=== PATIENT | male | born 1960 | race Hispanic/Latino ===

== ENCOUNTER 2020-10-15 04:11 | Inpatient (IN) | payer SELFPAY ==
[2020-10-15] MEDS ORDERED: dilTIAZem 25 MG/5 ML INJ ONE (04:16)
[2020-10-15] MEDS ORDERED: SODIUM CHLORIDE 0.9% 1000 ML 1,000 ML IV ONE (04:26)
--- NOTE | 2020-10-15 04:31 | Emergency Department Report ---
HPI - General Time Seen by Provider: 10/15/20 04:24 - HPI HPI: Room 22 The patient is a 60-year-old male present with a chief complaint of shortness of breath. The patient states for the past 2 days he has had a productive cough chest heaviness and shortness of breath. Patient states his chest heaviness was intermittent in nature. The patient states this evening he developed palpitations and shortness of breath prompting him to call 911. Patient states he has not been vaccinated against COVID-19. Patient denies history of fever ED Past Medical Hx - Past Medical History Previous Medical History?: No - Surgical History Past Surgical History?: No - Family History Family history: no significant - Social History Smoking Status: Current Every Day Smoker (1 pack/day) Substance Use Type: None (Denies illicit drug use) ED Review of Systems ROS: Stated complaint: AFIB RVR Other details as noted in HPI Constitutional: denies: fever Eyes: denies: eye pain Respiratory: cough, shortness of breath Cardiovascular: chest pain, palpitations Endocrine: no symptoms reported Gastrointestinal: denies: abdominal pain Genitourinary: denies: dysuria Skin: denies: lesions Neurological: denies: headache Physical Exam - Physical Exam Vital Signs: Vital Signs 10/15/20 10/15/20 10/15/20 04:18 04:20 04:24 Temperature 98.7 F Pulse Rate 181 H 181 H 121 H Respiratory 26 H Rate Blood Pressure 202/166 Blood Pressure 202/166 150/91 [Right] O2 Sat by Pulse 93 Oximetry 10/15/20 10/15/20 10/15/20 04:30 04:41 04:42 Temperature Pulse Rate 133 H 130 H Respiratory 42 H Rate Blood Pressure 202/166 156/98 Blood Pressure 156/98 [Right] O2 Sat by Pulse 92 Oximetry 10/15/20 10/15/20 10/15/20 04:46 05:00 05:04 Temperature Pulse Rate 107 H 100 H Respiratory 19 25 H Rate Blood Pressure 156/98 142/73 Blood Pressure [Right] O2 Sat by Pulse 96 95 94 Oximetry Physical Exam: GENERAL: The patient is well-developed well-nourished male lying on stretcher not appearing to be in acute distress. [] HEENT: Normocephalic. Atraumatic. Extraocular motions are intact. Patient has moist mucous membranes. NECK: Supple. Trachea midline CHEST/LUNGS: Rhonchi auscultated left lower lobe left upper lobe. HEART/CARDIOVASCULAR: Irregularly irregular. There is tachycardia. There is no gallop rub or murmur. ABDOMEN: Abdomen is soft, nontender. Patient has normal bowel sounds. There is no abdominal distention. SKIN: There is no rash. There is no edema. There is no diaphoresis. NEURO: The patient is awake, alert, and oriented. The patient is cooperative. The patient has no focal neurologic deficits. The patient has normal speech. GCS 15 MUSCULOSKELETAL: There is no evidence of acute injury. ED Medical Decision Making - Lab Data Result diagrams: 10/15/20 04:40 10/15/20 04:40 Laboratory Tests 10/15/20 10/15/20 10/15/20 04:40 04:40 04:40 WBC 11.1 H RBC 5.14 H Hgb 16.6 H Hct 48.9 H MCV 95 H MCH 32 MCHC 34 RDW 13.6 Plt Count 82 L Lymph % (Auto) 13.5 [place] % (Auto) 5.6 Eos % (Auto) 0.9 Baso % (Auto) 0.3 Lymph # (Auto) 1.5 [place] # (Auto) 0.6 Eos # (Auto) 0.1 Baso # (Auto) 0.0 Seg Neutrophils % 79.7 H Seg Neutrophils # 8.9 H PT 14.3 INR 1.06 APTT 30.2 Sodium 140 Potassium 3.6 Chloride 104.8 Carbon Dioxide 23 Anion Gap 16 BUN 21 H Creatinine 1.0 Estimated GFR > 60 BUN/Creatinine Ratio 21 Glucose 209 H Lactic Acid Calcium 9.4 Magnesium 1.80 Total Bilirubin 1.70 H AST 44 H ALT 31 Alkaline Phosphatase 117 Total Creatine Kinase 86 CK-MB (CK-2) 3.9 CK-MB (CK-2) Rel Index 4.5 H Troponin T < 0.010 NT-Pro-B Natriuret Pep 2259 H Total Protein 6.7 Albumin 4.4 Albumin/Globulin Ratio 1.9 TSH Free T4 10/15/20 10/15/20 04:40 04:40 WBC RBC Hgb Hct MCV MCH MCHC RDW Plt Count Lymph % (Auto) [place] % (Auto) Eos % (Auto) Baso % (Auto) Lymph # (Auto) [place] # (Auto) Eos # (Auto) Baso # (Auto) Seg Neutrophils % Seg Neutrophils # PT INR APTT Sodium Potassium Chloride Carbon Dioxide Anion Gap BUN Creatinine Estimated GFR BUN/Creatinine Ratio Glucose Lactic Acid 1.90 Calcium Magnesium Total Bilirubin AST ALT Alkaline Phosphatase Total Creatine Kinase CK-MB (CK-2) CK-MB (CK-2) Rel Index Troponin T NT-Pro-B Natriuret Pep Total Protein Albumin Albumin/Globulin Ratio TSH 3.200 Free T4 1.22 - EKG Data -: EKG Interpreted by Me Rate: tachycardia - EKG Data When compared to previous EKG there are: previous EKG unavailable Interpretation: other (A. fib with RVR 176 bpm.) 10/15/20 04:31 EMS EKG shows A. fib with RVR 10/15/20 05:03 ED EKG (status post Cardizem second dose) A. fib at 96 bpm. Biphasic T waves in leads V3, V4, V5, V6 - Radiology Data Radiology results: report reviewed (Chest x-ray), image reviewed (Chest x-ray) interpreted by me: Chest x-ray-right lower lobe airspace disease. No pneumothorax [facility] [address] [place] [address] XRay Report Signed Patient: SHERRI PRADO MR#: [id number] : 1960 Acct:[id number] Age/Sex: 60 / M ADM Date: 10/15/20 Loc: ED Attending Dr: Ordering Physician: MEME DAMON MD Date of Service: 10/15/20 Procedure(s): XR chest 1V ap Accession Number(s): [id number] cc: MEME DAMON MD Fluoro Time In Minutes: Chest single view INDICATION: Dyspnea IMPRESSION: Cardiomegaly. Ill- defined airspace disease within both lower lungs, right worse than left. No significant pleural effusion. Signer Name: Toi Paniagua MD Signed: 10/15/2020 5:0 5 AM Workstation Name: [id number] Transcribed By: RASHID Dictated By: Toi Paniagua MD Electronically Authenticated By: Toi Paniagua MD Signed Date/Time: 10/15/20 050 DD/ 0505 TD/TT: Print Cancel - Differential Diagnosis A. fib with RVR, COVID-19, pneumonia, ACS, pericarditis, GERD Critical care attestation.: If time is entered above; I have spent that time in minutes in the direct care of this critically ill patient, excluding procedure time. ED Disposition Clinical Impression: Atrial fibrillation with rapid ventricular response, Suspected COVID-19 virus infection, Pneumonia, Chest pain Disposition: ADMITTED INPATIENT Is pt being admited?: Yes Does the pt Need Aspirin: Yes Condition: Fair Instructions: Bacterial Pneumonia (ED), Nonspecific Chest Pain, Adult Time of Disposition: 05:35 (Hospitalist paged (Dr Pena)) Heart Score - HEART Score History: Moderately suspicious EKG: Non-specific Age: 45-65 Risk factors: 1-2 risk factors Troponin: < normal limit HEART Score: 4 - EKG Read Time Time EKG Completed: 04:16 EKG Read Time: 04:30
[2020-10-15] MEDS ORDERED: ASPIRIN 325 MG TAB PO ONE (04:32)
[2020-10-15] MEDS ORDERED: dilTIAZem 25 MG/5 ML INJ IV ONE ×2 (04:37)
--- NOTE | 2020-10-15 05:09 | XRay Report ---
Chest single view INDICATION: Dyspnea IMPRESSION: Cardiomegaly. Ill-defined airspace disease within both lower lungs, right worse than left . No significant pleural effusion. Signer Name: Toi Paniagua MD Signed: 10/15/2020 5:05 AM Workstation Name: [id number]
[2020-10-15] MEDS ORDERED: cefTRIAXone/NS 1 GM/50 ML 1 GM/50 ML BAG IV ONE (05:12)
[2020-10-15] MEDS ORDERED: AZITHROMYCIN/NS 500 MG/250 ML 500 MG/250 ML BAG IV ONE (05:12)
[2020-10-15 05:13] LABS: Basophils % (Auto) 0.3 % (0.0-1.8); Eosinophils # (Auto) 0.1 K/mm3 (0.0-0.4); Eosinophils % (Auto) 0.9 % (0.0-4.3); Hematocrit 48.9 % (35.5-45.6); Hemoglobin 16.6 gm/dl (11.8-15.2); Lymphocytes # (Auto) 1.5 K/mm3 (1.2-5.4); Lymphocytes % (Auto) 13.5 % (13.4-35.0); Mean Corpuscular HGB Conc 34 % (32-34); Mean Corpuscular Volume 95 fl (84-94); Monocytes # (Auto) 0.6 K/mm3 (0.0-0.8); Monocytes % (Auto) 5.6 % (0.0-7.3); Red Blood Count 5.14 M/mm3 (3.65-5.03); Red Cell Distribution Width 13.6 % (13.2-15.2)
[2020-10-15 05:22] LABS: Platelet Count 82 K/mm3 (140-440)
[2020-10-15 05:23] LABS: INR 1.06 (0.87-1.13)
[2020-10-15 05:24] LABS: Partial Thromboplastin Time 30.2 Sec. (24.2-36.6)
[2020-10-15 05:27] LABS: Alanine Aminotransferase 31 units/L (7-56); Albumin 4.4 g/dL (3.9-5); BUN/Creatinine Ratio 21; Blood Urea Nitrogen 21 mg/dL (9-20); Calcium 9.4 mg/dL (8.4-10.2); Creatine Kinase MB 3.9 ng/mL (0.0-4.0); Hemolysis Index 5
[2020-10-15 05:33] LABS: Free T4 (Free Thyroxine) 1.22 ng/dL (0.76-1.46)
[2020-10-15] MEDS ORDERED: dexAMETHasone 20 MG/5 ML VIAL IV ONE (05:42)
[2020-10-15 08:56] LABS: Amphetamine Screen,Urine Negative; Benzodiazepines Screen,Urine Negative; Cannabinoid Screen,Urine Negative; Cocaine Screen,Urine Negative; Methadone Screen,Urine Negative; Opiate Screen,Urine Negative
--- NOTE | 2020-10-15 11:51 | History and Physical Report ---
History of Present Illness Chief complaint: Im short of breath History of present illness: 60 YO Male with Obesity Hypoventilation Syndrome, Nicotine Dependence, HTN, Medication Noncompliance presents to ED for evaluation. Patient reported "I feel short of breath". Patient states he has experienced shortness of breath over the past 2 days with persistent and worsening symptoms over the same timeframe. Patient acknowledges productive cough, fatigue, malaise, body aches, decreased sense of smell, decrease in sense of taste, as well as chest palpitations. Patient also acknowledges orthopnea, paroxysmal nocturnal dyspnea, decreased exercise tolerance. EMS was notified and upon arrival the patient was found to be in distress and subsequently transported to [facility] for further care and evaluation of the aforementioned symptoms. Patient was seen and evaluated in the emergency department. All lab and imaging studies reviewed. Patient found to have a pulse oximetry of 89% with exertion which is consistent with acute hypoxemic respiratory failure. Chest x-ray revealed bilateral pneumonia. production repairer monitor as well as subsequent EKG revealed atrial fibrillation complicated by rapid ventricular response. Patient also found to have clinical symptoms consistent with diastolic CHF decompensation. Patient mated to medical floor and initiated on pneumonia protocol as well as coronavirus protocol. Patient treated with medical cardioversion with normalization of heart rate and improvement in blood pressure. Patient knowledges subjective fever but denies chills, chest pain, skin rash, recent ill contact, or known exposure to COVID-19. Patient states he has not been vaccinated against COVID-19. No prior admission for review. No medication listed at time of admission for reconciliation. Advanced care planning conducted in ED. Past History Past Medical History: hypertension, other (See HPI) Past Surgical History: No surgical history, Other (Reviewed) Social history: smoking Family history: hypertension Medications and Allergies Allergies Allergy/AdvReac Type Severity Reaction Status Date / Time No Known Allergies Allergy Verified 10/15/20 04:30 Review of Systems Constitutional: fever, weakness, malaise, lethargy, no weight loss, no weight gain Ears, nose, mouth and throat: no ear pain, no ear discharge, no tinnitis, no decreased hearing, no nose pain Cardiovascular: orthopnea, palpitations, shortness of breath, dyspnea on exertion, paroxysmal nocturnal dyspnea, high blood pressure, decreased exercise tolerance Exam - Constitutional Vitals: Temp Pulse Resp BP Pulse Ox 98.7 F 114 H 23 131/83 94 10/15/20 04:20 10/15/20 07:30 10/15/20 07:30 10/15/20 07:30 10/15/20 07:30 General appearance: Present: mild distress, obese - EENT Eyes: Present: PERRL ENT: hearing intact, clear oral mucosa - Neck Neck: Present: supple, normal ROM - Respiratory Respiratory effort: labored, accessory muscle use, stridor Respiratory: bilateral: diminished, rhonchi - Cardiovascular Rhythm: irregularly irregular Heart Sounds: Present: S1 & S2. Absent: rub, click - Extremities Extremities: pulses symmetrical Extremity abnormal: edema Peripheral Pulses: within normal limits - Abdominal General gastrointestinal: Present: soft, non-tender, non-distended, normal bowel sounds Male genitourinary: Present: normal - Integumentary Integumentary: Present: clear, warm, dry - Musculoskeletal Musculoskeletal: gait normal, strength equal bilaterally - Psychiatric Psychiatric: appropriate mood/affect, intact judgment & insight - Neurologic Neurologic: CNII-XII intact, moves all extremities HEART Score - HEART Score EKG: Non-specific Age: 45-65 Risk factors: 1-2 risk factors Troponin: Troponin T < 0.010 ng/mL (0.00-0.029) 10/15/20 04:40 Troponin: < normal limit Results - Labs CBC & Chem 7: 10/15/20 12:23 10/15/20 12:23 Labs: Abnormal lab results 10/15/20 10/15/20 Range/Units 04:40 04:40 WBC 11.1 H (4.5-11.0) K/mm3 RBC 5.14 H (3.65-5.03) M/mm3 Hgb 16.6 H (11.8-15.2) gm/dl Hct 48.9 H (35.5-45.6) % MCV 95 H (84-94) fl Plt Count 82 L (140-440) K/mm3 Seg Neutrophils % 79.7 H (40.0-70.0) % Seg Neutrophils # 8.9 H (1.8-7.7) K/mm3 BUN 21 H (9-20) mg/dL Glucose 209 H (75-100) mg/dL Total Bilirubin 1.70 H (0.1-1.2) mg/dL AST 44 H (5-40) units/L CK-MB (CK-2) Rel Index 4.5 H (0-4) NT-Pro-B Natriuret Pep 2259 H (0-900) pg/mL Assessment and Plan - Patient Problems (1) Acute hypoxemic respiratory failure Current Visit: Yes Status: Acute Plan to address problem: Supplemental oxygen, pulse oximetry, chest x-ray, nebulizer therapy, noninvasive positive pressure ventilation as clinically indicated. (2) Obesity hypoventilation syndrome Current Visit: Yes Status: Acute Plan to address problem: Balanced diet, increase physical activity discharge, outpatient pulmonary follow-up for sleep study. (3) Diastolic CHF Current Visit: Yes Status: Acute Qualifiers: Heart failure chronicity: acute Qualified Code(s): I50.31 - Acute diastolic (congestive) heart failure Plan to address problem: CHF protocol: Strict I's/O, afterload reduction, echocardiogram ordered and is pending at time of admission, thyroid panel, magnesium level, blood pressure control, BNP, (4) Atrial fibrillation with rapid ventricular response Current Visit: Yes Status: Acute Plan to address problem: Medical cardioversion with Cardizem with rate responding and below 100 bpm. Therapeutic anticoagulation, continue medical management. (5) Pneumonia Current Visit: Yes Status: Acute Plan to address problem: Pneumonia protocol: Chest x-ray, CBC, CMP, IV antibiotic therapy, supplemental oxygen, pulse oximetry, blood culture. (6) Suspected COVID-19 virus infection Current Visit: Yes Status: Acute Plan to address problem: Coronavirus protocol: IV antibiotic therapy, IV steroid therapy, vitamin C therapy, vitamin D therapy, zinc therapy, therapeutic anticoagulation. (7) DVT prophylaxis Current Visit: Yes Status: Acute Plan to address problem: SCD to bilateral lower extremities while in bed, therapeutic anticoagulation. (8) Advance care planning Current Visit: Yes Status: Acute Plan to address problem: Disease education conducted, care plan discussed, diagnosis discussed, prognosis discussed, patient is full code, patient knowledges understanding agreement with care plan, +30 minutes.
[2020-10-15] MEDS ORDERED: HYDROmorphone 1 MG/1 ML INJ IV PRN (11:53)
[2020-10-15] MEDS ORDERED: ONDANSETRON 4 MG/2 ML INJ IV PRN (11:53)
[2020-10-15] MEDS ORDERED: ACETAMINOPHEN 325 MG TAB PO PRN (11:53)
[2020-10-15] MEDS ORDERED: oxyCODONE /ACETAMINOPHEN 5-325MG TAB PO PRN (11:53)
[2020-10-15] MEDS ORDERED: ALBUTEROL 2.5 MG/3 ML NEBU IH PRN (11:53)
[2020-10-15 12:48] LABS: Hematocrit 48.7 % (35.5-45.6); Hemoglobin 16.7 gm/dl (11.8-15.2); Mean Corpuscular HGB Conc 34 % (32-34); Mean Corpuscular Volume 95 fl (84-94); Red Blood Count 5.13 M/mm3 (3.65-5.03); Red Cell Distribution Width 13.5 % (13.2-15.2)
[2020-10-15 12:50] LABS: INR 1.05 (0.87-1.13); Partial Thromboplastin Time 29.4 Sec. (24.2-36.6)
[2020-10-15 12:56] LABS: Platelet Count 77 K/mm3 (140-440)
[2020-10-15] MEDS: dilTIAZem 30 MG TAB PO SCH ×3 (13:00→23:44)
[2020-10-15 13:12] LABS: Free T4 (Free Thyroxine) 1.18 ng/dL (0.76-1.46)
[2020-10-15] MEDS: methylPREDNISolone Sod Succinate 40 MG/1 ML INJ IV SCH ×2 (13:44→23:45)
--- NOTE | 2020-10-15 17:23 | Electrocardiograph Report ---
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
--- NOTE | 2020-10-15 17:24 | Electrocardiograph Report ---
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
[2020-10-15] MEDS: cefTRIAXone/NS 2 GM/100 ML 2 GM/100 ML BAG IV SCH (17:52)
[2020-10-15] MEDS: ZINC SULFATE 220 MG CAP PO SCH (23:44)
[2020-10-15] MEDS: ASCORBIC ACID 500 MG TAB PO SCH (23:45)
[2020-10-15] MEDS: APIXABAN 5 MG TAB PO SCH (23:46)
[2020-10-16 06:48] LABS: Basophils % (Auto) 0.2 % (0.0-1.8); Hematocrit 45.5 % (35.5-45.6); Hemoglobin 15.6 gm/dl (11.8-15.2); Lymphocytes # (Auto) 1.3 K/mm3 (1.2-5.4); Lymphocytes % (Auto) 11.2 % (13.4-35.0); Mean Corpuscular HGB Conc 34 % (32-34); Mean Corpuscular Volume 95 fl (84-94); Monocytes # (Auto) 0.4 K/mm3 (0.0-0.8); Monocytes % (Auto) 3.4 % (0.0-7.3); Red Blood Count 4.79 M/mm3 (3.65-5.03); Red Cell Distribution Width 13.5 % (13.2-15.2)
[2020-10-16 06:54] LABS: Platelet Count 76 K/mm3 (140-440)
[2020-10-16 06:59] LABS: BUN/Creatinine Ratio 26; Blood Urea Nitrogen 21 mg/dL (9-20); Calcium 8.7 mg/dL (8.4-10.2); Hemolysis Index 4
[2020-10-16] MEDS: AZITHROMYCIN/NS 500 MG/250 ML 500 MG/250 ML BAG IV SCH (08:24)
[2020-10-16] MEDS: methylPREDNISolone Sod Succinate 40 MG/1 ML INJ IV SCH ×3 (08:24→22:11)
[2020-10-16] MEDS: dilTIAZem 30 MG TAB PO SCH (08:24)
--- NOTE | 2020-10-16 09:02 | Consultation ---
History of Present Illness Consult date: 10/16/20 Consult reason: atrial fibrillation History of present illness: 60-year-old man with no prior cardiac history, presents to the emergency room with several days of cough and low-grade fever, followed by acute palpitations. On presentation to the emergency room, he was found with rapid atrial fibrillation, with a right bundle branch block morphology with heart rate initially in the 200s. He is admitted for further management and cardiac consultation was requested. As reported, EKG was rapid atrial fibrillation, right bundle branch block, no acute ischemic changes. Cardiac troponin measurement was negative. Chest x-ray shows moderate to severe cardiomegaly with minimal interstitial lung changes. Most significant finding on his laboratory values is marked thrombocytopenia, with a platelet count of 77-82,000. His only medical history is chronic tobacco abuse. He has no primary doctor has not had a medical evaluation in many years. He currently is in the emergency room, feels somewhat better following emergency room treatment. He currently remains in atrial fibrillation with heart rates in the 120s. Past History Past Medical History: hypertension, other (Tobacco abuse) Past Surgical History: No surgical history, Other (Reviewed) Social history: smoking Family history: hypertension Medications and Allergies Allergies Allergy/AdvReac Type Severity Reaction Status Date / Time No Known Allergies Allergy Verified 10/15/20 04:30 Active Meds: Active Medications Acetaminophen (Acetaminophen 325 Mg Tab) 650 mg PO Q4H PRN PRN Reason: Pain MILD(1-3)/Fever >100.5/MAY Albuterol (Albuterol 2.5 Mg/3 Ml Nebu) 2.5 mg IH Q4HRT PRN PRN Reason: Shortness Of Breath Apixaban (Apixaban 5 Mg Tab) 10 mg PO Q12HR ANGEL; Protocol Stop: 10/22/20 10:01 Last Admin: 10/15/20 23:46 Dose: 10 mg Documented by: Apixaban (Apixaban 5 Mg Tab) 5 mg PO Q12HR ANGEL; Protocol Ascorbic Acid (Ascorbic Acid 500 Mg Tab) 500 mg PO BID ANGEL Last Admin: 10/15/20 23:45 Dose: 500 mg Documented by: Cholecalciferol (Cholecalciferol (Vit D3) 1000 Unit (25 Mcg) Tab) 1,000 unit PO QDAY ANGEL Diltiazem HCl (Diltiazem 30 Mg Tab) 30 mg PO Q6HR ANGEL Last Admin: 10/16/20 08:24 Dose: 30 mg Documented by: Hydromorphone HCl (Hydromorphone 1 Mg/1 Ml Inj) 0.5 mg IV Q12H PRN PRN Reason: Pain , Severe (7-10) Ceftriaxone Sodium (Rocephin/Ns 2 Gm/100 Ml) 2 gm in 100 mls @ 200 mls/hr IV Q24H [facility]; Protocol Stop: 10/19/20 18:29 Last Admin: 10/15/20 17:52 Dose: 200 mls/hr Documented by: Azithromycin (Zithromax/Ns) 500 mg in 250 mls @ 250 mls/hr IV Q24H [facility]; Protocol Stop: 10/19/20 06:59 Last Admin: 10/16/20 08:24 Dose: 250 mls/hr Documented by: Methylprednisolone Sodium Succinate (Methylprednisolone Sod Succinate 40 Mg/1 Ml Inj) 40 mg IV Q8H [facility] Last Admin: 10/16/20 08:24 Dose: 40 mg Documented by: Ondansetron HCl (Ondansetron 4 Mg/2 Ml Inj) 4 mg IV Q8H PRN PRN Reason: Nausea And Vomiting Oxycodone/Acetaminophen (Oxycodone /Acetaminophen 5-325mg Tab) 1 tab PO Q12H PRN PRN Reason: Pain, Moderate (4-6) Sodium Chloride (Sodium Chloride 0.9% 10 Ml Flush Syringe) 10 ml IV BID [facility] Last Admin: 10/15/20 23:45 Dose: 10 ml Documented by: Sodium Chloride (Sodium Chloride 0.9% 10 Ml Flush Syringe) 10 ml IV PRN PRN PRN Reason: LINE FLUSH Zinc Sulfate (Zinc Sulfate 220 Mg Cap) 220 mg PO BID [facility] Last Admin: 10/15/20 23:44 Dose: 220 mg Documented by: Review of Systems Cardiovascular: palpitations, rapid/irregular heart beat, shortness of breath, no chest pain, no orthopnea, no edema, no syncope, no lightheadedness Respiratory: cough Physical Examination Vital Signs Pulse BP 181 H 202/166 10/15/20 04:18 10/15/20 04:18 General appearance: no acute distress HEENT: Positive: PERRL Neck: Positive: neck supple Cardiac: Positive: irregularly irregular Lungs: Positive: Decreased Breath Sounds Neuro: Positive: Grossly Intact Abdomen: Positive: Soft Male genitourinary: Positive: deferred Skin: Positive: Clear Extremities: Absent: edema Results 10/16/20 05:44 10/16/20 05:44 Coagulation 10/15/20 Range/Units 12:23 PT 14.2 (12.2-14.9) Sec. INR 1.05 (0.87-1.13) APTT 29.4 (24.2-36.6) Sec. CBC 10/15/20 10/16/20 Range/Units 12:23 05:44 WBC 9.0 12.0 H (4.5-11.0) K/mm3 RBC 5.13 H 4.79 (3.65-5.03) M/mm3 Hgb 16.7 H 15.6 H (11.8-15.2) gm/dl Hct 48.7 H 45.5 (35.5-45.6) % Plt Count 77 L 76 L (140-440) K/mm3 Lymph # (Auto) 1.3 (1.2-5.4) K/mm3 [place] # (Auto) 0.4 (0.0-0.8) K/mm3 Eos # (Auto) 0.0 (0.0-0.4) K/mm3 Baso # (Auto) 0.0 (0.0-0.1) K/mm3 Comprehensive Metabolic Panel 10/15/20 10/16/20 Range/Units 12:23 05:44 Sodium 140 (137-145) mmol/L Potassium 4.8 D (3.6-5.0) mmol/L Chloride 104.9 (98-107) mmol/L Carbon Dioxide 25 (22-30) mmol/L BUN 21 H (9-20) mg/dL Creatinine 0.7 L 0.8 (0.8-1.3) mg/dL Glucose 228 H (75-100) mg/dL Calcium 8.7 (8.4-10.2) mg/dL EKG interpretations - Telemetry EKG Rhythm: Atrial Fibrillation (With right bundle branch block morphology) Assessment and Plan - Patient Problems (1) Atrial fibrillation with rapid ventricular response Current Visit: Yes Status: Acute Plan to address problem: This is apparently new finding of rapid atrial fibrillation, patient has no prior cardiac history. The finding of a severe cardiomegaly on chest x-ray will suggest likely underlying dilated cardiomyopathy. We will await echo cardiogram for left ventricular function assessment. Rate control with beta-blockers or Cardizem, with additional amiodarone as needed. The patient may not be a candidate for anticoagulation at this time, due to severe underlying thrombocytopenia. I will therefore hold the Eliquis that was ordered in the emergency room until his thrombocytopenia is further evaluated by hematology and internal medicine.
[2020-10-16] MEDS ORDERED: AMIODARONE 900 MG in DEXTROSE 5% IN WATER 482 ML IV SCH (11:00)
[2020-10-16] MEDS ORDERED: AMIODARONE 150 MG in DEXTROSE 5% IN WATER 97 ML IV ONE (11:00)
[2020-10-16] MEDS: ASCORBIC ACID 500 MG TAB PO SCH ×2 (11:32→22:12)
[2020-10-16] MEDS: ASPIRIN EC 81 MG TAB PO SCH (11:32)
[2020-10-16] MEDS: CHOLECALCIFEROL (VIT D3) 1000 UNIT (25 mcg) TAB PO SCH (11:32)
[2020-10-16] MEDS: APIXABAN 5 MG TAB PO SCH ×2 (11:32→22:11)
[2020-10-16] MEDS: ZINC SULFATE 220 MG CAP PO SCH ×2 (11:33→22:12)
[2020-10-16] MEDS: FUROSEMIDE 40 MG/4 ML INJ IV SCH (11:33)
[2020-10-16] MEDS: SPIRONOLACTONE 25 MG TAB PO SCH (13:00)
[2020-10-16] MEDS: METOPROLOL TARTRATE 50 MG TAB PO SCH ×2 (13:01→22:11)
--- NOTE | 2020-10-16 14:52 | Progress Note ---
Assessment and Plan -- Acute hypoxemic respiratory failure Supplemental O2, nebulizer therapy as needed Likely due to underlying pneumonia and CHF, Continue antibiotics and diuretics as needed -- Atrial fibrillation with rapid ventricular response s/p Medical cardioversion with Cardizem with rate responding and below 100 bpm. Therapeutic anticoagulation, continue medical management. --Acute systolic CHF, EF 20 to 25% Diuresis as recommended per cardiology, antifailure medications -- Pneumonia, CAP Pneumonia protocol: IV antibiotic therapy, supplemental oxygen, pulse oximetry, blood culture. -- Suspected COVID-19 virus infection, resolved with a negative test --Obesity, diet and exercise recommendation as outpatient when clinically more stable -- DVT prophylaxis SCD to bilateral lower extremities while in bed, therapeutic anticoagulation as recommended by cardiology. --Full CODE STATUS Daily clinical course: 10/16/20: Covid test is negative, continue empiric antibiotic for pneumonia. Initiated on IV amiodarone for atrial fibrillation. Anticoagulation per cardiology recommendation. 2D echo showed EF 20 to 25%, cardiology following Subjective Date of service: 10/16/20 Interval history: Patient seen and examined. Medical records and medication list reviewed. No acute event overnight noted by the RN. Patient complains of chest tightness and difficulty breathing on exertion. Patient is tolerating diet. Discussed plan of care at bedside with patient. Objective - Exam Narrative Exam: GENERAL: well-developed and well-nourished white male lying on bed appeared to be in no discomfort. HEENT: Normocephalic. Atraumatic. No conjunctival congestion or icterus. Patient has moist mucous membranes. NECK: Supple. Trachea midline. CHEST/LUNGS: Few crackles auscultated bilaterally, breathing nonlabored. No wheezes or rhonchi. HEART/CARDIOVASCULAR: Regular in rate and rhythm. S1 and S2 positive. ABDOMEN: Abdomen is soft, nontender. Patient has normal bowel sounds. SKIN: There is no rash. Warm and dry. NEURO: No focal motor deficit. Follows command. MUSCULOSKELETAL: No joint effusion or tenderness. EXTRIMITY: No edema, no cyanosis or clubbing. PSYCH: Cooperative. - Constitutional Vitals: Vital Signs - 12hr 10/16/20 10/16/20 10/16/20 03:00 03:30 04:00 Pulse Rate 85 83 74 Respiratory 15 15 15 Rate Blood Pressure 116/59 98/65 96/59 O2 Sat by Pulse 94 96 94 Oximetry 10/16/20 10/16/20 10/16/20 04:30 05:00 05:30 Pulse Rate 85 76 83 Respiratory 16 15 15 Rate Blood Pressure 112/79 104/77 99/65 O2 Sat by Pulse 94 96 96 Oximetry 10/16/20 10/16/20 10/16/20 06:00 06:30 07:00 Pulse Rate 88 86 74 Respiratory 18 16 16 Rate Blood Pressure 136/84 107/64 122/71 O2 Sat by Pulse 95 96 Oximetry 10/16/20 10/16/20 10/16/20 07:30 08:00 08:30 Pulse Rate 83 87 111 H Respiratory 18 17 14 Rate Blood Pressure 114/75 119/74 117/79 O2 Sat by Pulse 97 95 91 Oximetry 10/16/20 10/16/20 10/16/20 09:00 09:30 10:00 Pulse Rate 101 H 96 H 94 H Respiratory 18 16 24 Rate Blood Pressure 119/74 101/67 106/63 O2 Sat by Pulse 98 96 97 Oximetry 10/16/20 10/16/20 10/16/20 10:30 11:00 12:30 Pulse Rate 99 H 81 97 H Respiratory 22 17 22 Rate Blood Pressure 111/75 117/76 119/74 O2 Sat by Pulse 99 93 90 Oximetry 10/16/20 10/16/20 10/16/20 13:00 13:30 14:00 Pulse Rate 113 H 96 H 89 Respiratory 24 28 H 14 Rate Blood Pressure 107/67 107/67 106/67 O2 Sat by Pulse 94 96 96 Oximetry - Labs CBC & Chem 7: 10/19/20 04:57 10/18/20 10:21 Labs: Abnormal lab results 10/16/20 10/16/20 Range/Units 05:44 05:44 WBC 12.0 H (4.5-11.0) K/mm3 Hgb 15.6 H (11.8-15.2) gm/dl MCV 95 H (84-94) fl MCH 33 H (28-32) pg Plt Count 76 L (140-440) K/mm3 Lymph % (Auto) 11.2 L (13.4-35.0) % Seg Neutrophils % 85.2 H (40.0-70.0) % Seg Neutrophils # 10.3 H (1.8-7.7) K/mm3 BUN 21 H (9-20) mg/dL Glucose 228 H (75-100) mg/dL HEART Score - HEART Score EKG: Non-specific Age: 45-65 Risk factors: 1-2 risk factors Troponin: Troponin T < 0.010 ng/mL (0.00-0.029) 10/15/20 04:40 Troponin: < normal limit
[2020-10-16] MEDS: cefTRIAXone/NS 2 GM/100 ML 2 GM/100 ML BAG IV SCH (18:07)
[2020-10-17 06:23] LABS: Hematocrit 45.2 % (35.5-45.6); Hemoglobin 15.3 gm/dl (11.8-15.2); Mean Corpuscular HGB Conc 34 % (32-34); Mean Corpuscular Volume 95 fl (84-94); Red Blood Count 4.76 M/mm3 (3.65-5.03); Red Cell Distribution Width 13.6 % (13.2-15.2)
[2020-10-17 06:47] LABS: Platelet Count 93 K/mm3 (140-440)
[2020-10-17] MEDS: methylPREDNISolone Sod Succinate 125 MG/2 ML INJ IV SCH ×3 (06:55→21:37)
[2020-10-17] MEDS: AZITHROMYCIN/NS 500 MG/250 ML 500 MG/250 ML BAG IV SCH (06:56)
--- NOTE | 2020-10-17 09:45 | Ultrasound Report ---
ULTRASOUND ABDOMEN, LIMITED (RIGHT UPPER QUADRANT) INDICATION: low plt count; eval for splenomegaly. COMPARISON: None available. FINDINGS: The spleen measures 11.6 x 4 cm. Morphology is normal. No internal lesion. IMPRESSION: Spleen upper limits of normal in size. Signer Name: Eleazar Worthy MD Signed: 10/17/2020 9:41 AM Workstation Name: [id number]
[2020-10-17] MEDS: SPIRONOLACTONE 25 MG TAB PO SCH (10:52)
[2020-10-17] MEDS: APIXABAN 5 MG TAB PO SCH (10:52)
[2020-10-17] MEDS: ASCORBIC ACID 500 MG TAB PO SCH ×2 (10:53→21:36)
[2020-10-17] MEDS: CHOLECALCIFEROL (VIT D3) 1000 UNIT (25 mcg) TAB PO SCH (10:53)
[2020-10-17] MEDS: METOPROLOL TARTRATE 50 MG TAB PO SCH ×2 (10:53→21:36)
[2020-10-17] MEDS: FUROSEMIDE 40 MG/4 ML INJ IV SCH (10:53)
[2020-10-17] MEDS: ASPIRIN EC 81 MG TAB PO SCH (10:53)
[2020-10-17] MEDS: ZINC SULFATE 220 MG CAP PO SCH ×2 (10:54→21:40)
--- NOTE | 2020-10-17 10:57 | Progress Note ---
Assessment and Plan New finding of Atrial fibrillation rate controlled TSH is at 3.2 Dilated cardiomyopathy, uncertain duration LVEF 20-25% Thrombocytopenia Tobacco abuse Recommendations: Anticoagulation with Eliquis has been initiated. Continue rate control with Cardizem and Amiodarone. Will transition amiodarone to oral form. Guideline directed medical therapy for dilated cardiomyopathy. Pre-discharge Lexiscan thallium stress test for dilated cardiomyopathy. Subjective Date of service: 10/17/20 Interval history: Patient is resting in bed comfortably. Atrial fibrillation with a well controlled ventricular rate on telemetry. Objective Vital Signs Pulse Resp BP Pulse Ox 10/17/20 10:00 89 16 112/73 96 10/17/20 09:30 82 21 109/76 95 10/17/20 09:00 89 18 110/78 97 10/17/20 08:30 96 H 16 101/76 94 10/17/20 08:00 87 15 104/75 97 10/17/20 07:30 98 H 22 111/80 99 10/17/20 07:00 92 H 24 112/80 99 10/17/20 06:30 89 15 126/81 97 10/17/20 06:00 90 18 94/61 96 10/17/20 05:30 82 14 125/89 96 10/17/20 05:00 82 13 102/73 96 10/17/20 04:30 70 13 105/80 97 10/17/20 04:00 74 12 106/76 96 10/17/20 03:50 81 22 109/68 98 10/17/20 03:40 71 14 109/68 97 10/17/20 03:30 70 13 103/68 96 10/17/20 03:20 75 19 100/77 96 10/17/20 03:10 80 13 100/77 95 10/17/20 03:00 82 15 103/70 94 10/17/20 02:50 77 20 99/70 93 10/17/20 02:40 82 17 105/70 94 10/17/20 02:30 76 17 112/76 94 10/17/20 02:20 81 18 101/74 95 10/17/20 02:10 70 15 101/74 96 10/17/20 02:00 71 15 99/70 96 10/17/20 01:50 71 13 105/63 97 10/17/20 01:40 73 14 105/63 97 08/24/ 01:30 69 12 95/70 96 24/21 01:20 77 15 101/68 100 10/17/20 01:10 87 23 101/68 92 10/17/20 01:00 74 13 103/76 98 24/21 00:50 73 17 106/68 99 10/17/21 00:40 70 15 101/74 98 24/ 00:30 78 16 103/76 96 10/17/20 00:20 83 17 103/76 96 10/17/20 00:10 84 18 103/76 96 10/17/ 00:00 83 23 106/68 88 10/16/ 23:50 101 H 24 114/78 92 10/16/21 23:40 89 17 114/78 94 10/16/ 23:30 83 18 110/78 95 10/16/20 23:20 96 H 22 114/73 98 10/16/ 23:10 91 H 20 114/73 99 10/16/20 23:00 90 24 112/83 93 10/16/20 22:50 91 H 16 105/70 96 10/16/21 22:40 83 16 105/70 96 10/16/21 22:30 85 17 113/83 97 10/16/ 22:20 86 17 110/68 98 10/16/ 22:11 86 110/68 08/21 22:10 95 H 17 110/68 98 10/16/21 22:00 89 16 120/75 99 10/16/21 21:50 79 18 119/79 99 10/16/21 21:40 78 18 119/77 97 23/21 21:30 82 20 111/76 96 10/16/21 21:20 87 22 109/85 95 0823/21 21:10 75 18 109/85 97 23/21 21:00 92 H 20 119/79 96 23/21 20:50 84 24 109/80 96 0823/21 20:40 78 16 109/80 96 /23/21 20:30 85 20 107/70 97 /23/21 20:20 82 26 H 121/62 99 23/21 20:10 93 H 16 121/62 97 23/21 20:00 91 H 12 126/87 97 10/16/20 19:50 82 12 117/80 98 10/16/20 19:40 108 H 30 H 117/80 92 10/16/20 17:30 76 19 106/74 95 10/16/20 17:00 74 22 109/76 99 10/16/20 16:30 75 20 104/71 95 10/16/20 16:00 73 16 88/57 98 10/16/20 15:30 86 17 101/56 96 10/16/20 15:00 60 17 108/72 96 10/16/20 14:30 77 16 115/73 97 10/16/20 14:00 89 14 106/67 96 10/16/20 13:30 96 H 28 H 107/67 96 10/16/20 13:00 113 H 24 107/67 94 10/16/20 12:30 97 H 22 119/74 90 10/16/20 11:00 81 17 117/76 93 - Physical Examination General: No Apparent Distress HEENT: Positive: PERRL Neck: Positive: neck supple Cardiac: Positive: irregularly irregular Lungs: Positive: Decreased Breath Sounds Neuro: Positive: Grossly Intact Abdomen: Positive: Soft Extremities: Absent: edema - Labs and Meds CBC 10/17/20 Range/Units 05:42 WBC 19.4 H (4.5-11.0) K/mm3 RBC 4.76 (3.65-5.03) M/mm3 Hgb 15.3 H (11.8-15.2) gm/dl Hct 45.2 (35.5-45.6) % Plt Count 93 L (140-440) K/mm3
[2020-10-17] MEDS: AMIODARONE 200 MG TAB PO SCH ×2 (12:58→21:36)
--- NOTE | 2020-10-17 17:11 | Progress Note ---
Assessment and Plan -- Acute hypoxemic respiratory failure Supplemental O2, nebulizer therapy as needed Likely due to underlying pneumonia and CHF, Continue antibiotics and diuretics as needed -- Atrial fibrillation with rapid ventricular response s/p Medical cardioversion with Cardizem with rate responding and below 100 bpm. Started on amiodarone Therapeutic anticoagulation as recommended, continue medical management. Cardiology following --Acute systolic CHF, EF 20 to 25% Diuresis as recommended per cardiology, antifailure medications -- Pneumonia, CAP Pneumonia protocol: IV antibiotic therapy, supplemental oxygen, pulse oximetry, blood culture. -- Suspected COVID-19 virus infection, resolved with a negative test --Obesity, diet and exercise recommendation as outpatient when clinically more stable --Thrombocytopenia: Consulted hematology for anticoagulation recommendation -- DVT prophylaxis SCD to bilateral lower extremities while in bed, therapeutic anticoagulation as recommended by cardiology. --Full CODE STATUS Daily clinical course: 10/16/20: Covid test is negative, continue empiric antibiotic for pneumonia. Initiated on IV amiodarone for atrial fibrillation. Anticoagulation per cardiology recommendation. 2D echo showed EF 20 to 25%, cardiology following 10/17/20: Started on Eliquis for anticoagulation, continue rate control with Cardizem and amiodarone. Transition from IV to p.o. amiodarone today. Plan for stress test tomorrow. Continue to follow clinically Subjective Date of service: 10/17/20 Interval history: Patient seen and examined. Medical records and medication list reviewed. No acute event overnight noted by the RN. Patient complains of chest tightness and difficulty breathing on exertion. Patient is tolerating diet. Discussed plan of care at bedside with patient. Objective - Exam Narrative Exam: GENERAL: well-developed and well-nourished white male lying on bed appeared to be in no discomfort. HEENT: Normocephalic. Atraumatic. No conjunctival congestion or icterus. Patient has moist mucous membranes. NECK: Supple. Trachea midline. CHEST/LUNGS: Few crackles auscultated bilaterally, breathing nonlabored. No wheezes or rhonchi. HEART/CARDIOVASCULAR: Regular in rate and rhythm. S1 and S2 positive. ABDOMEN: Abdomen is soft, nontender. Patient has normal bowel sounds. SKIN: There is no rash. Warm and dry. NEURO: No focal motor deficit. Follows command. MUSCULOSKELETAL: No joint effusion or tenderness. EXTRIMITY: No edema, no cyanosis or clubbing. PSYCH: Cooperative. - Constitutional Vitals: Vital Signs - 12hr 10/17/20 10/17/20 10/17/20 05:30 06:00 06:30 Pulse Rate 82 90 89 Respiratory 14 18 15 Rate Blood Pressure 125/89 94/61 126/81 O2 Sat by Pulse 96 96 97 Oximetry 10/17/20 10/17/20 10/17/20 07:00 07:30 08:00 Pulse Rate 92 H 98 H 87 Respiratory 24 22 15 Rate Blood Pressure 112/80 111/80 104/75 O2 Sat by Pulse 99 99 97 Oximetry 10/17/20 10/17/20 10/17/20 08:30 09:00 09:30 Pulse Rate 96 H 89 82 Respiratory 16 18 21 Rate Blood Pressure 101/76 110/78 109/76 O2 Sat by Pulse 94 97 95 Oximetry 10/17/20 10/17/20 10/17/20 10:00 10:30 11:00 Pulse Rate 89 120 H 95 H Respiratory 16 25 H 25 H Rate Blood Pressure 112/73 130/81 131/83 O2 Sat by Pulse 96 96 96 Oximetry 10/17/20 10/17/20 10/17/20 11:30 12:00 12:30 Pulse Rate 80 86 80 Respiratory 24 25 H 17 Rate Blood Pressure 118/81 99/69 98/64 O2 Sat by Pulse 96 93 95 Oximetry 10/17/20 10/17/20 10/17/20 13:00 13:30 13:53 Pulse Rate 77 72 Respiratory 17 15 Rate Blood Pressure 98/64 117/77 O2 Sat by Pulse 91 96 98 Oximetry 10/17/20 10/17/20 10/17/20 14:00 14:30 15:00 Pulse Rate 88 70 72 Respiratory 18 15 14 Rate Blood Pressure 115/70 109/78 123/68 O2 Sat by Pulse 97 92 94 Oximetry 10/17/20 10/17/20 10/17/20 15:30 16:00 16:30 Pulse Rate 84 91 H 84 Respiratory 18 14 20 Rate Blood Pressure 101/66 104/60 119/87 O2 Sat by Pulse 95 95 95 Oximetry - Labs CBC & Chem 7: 10/19/20 04:57 10/18/20 10:21 Labs: Abnormal lab results 10/17/20 Range/Units 05:42 WBC 19.4 H (4.5-11.0) K/mm3 Hgb 15.3 H (11.8-15.2) gm/dl MCV 95 H (84-94) fl Plt Count 93 L (140-440) K/mm3 HEART Score - HEART Score EKG: Non-specific Age: 45-65 Risk factors: 1-2 risk factors Troponin: Troponin T < 0.010 ng/mL (0.00-0.029) 10/15/20 04:40 Troponin: < normal limit
[2020-10-17] MEDS: cefTRIAXone/NS 2 GM/100 ML 2 GM/100 ML BAG IV SCH (21:35)
[2020-10-17] MEDS ORDERED: APIXABAN 5 MG TAB PO SCH (22:00)
[2020-10-18] MEDS: methylPREDNISolone Sod Succinate 125 MG/2 ML INJ IV SCH ×3 (05:23→22:27)
[2020-10-18] MEDS: AZITHROMYCIN/NS 500 MG/250 ML 500 MG/250 ML BAG IV SCH (05:23)
--- NOTE | 2020-10-18 05:45 | Hem/Onc Consultation ---
History of Present Illness - History of Present Illness televisit via [place] video televisit not possible CPT 77169 Dx thrombocytopenia 60yo obese man, 234 lbs with OHS , adm for SOB, Covid Ag testing neg since admission he has evidence of pneumonia, atrial fibrillation, low plts 50- 100 receiving steroid pulse and IV Abx found to have LVEF 20-25%, dilated cardiomyopathy DATA REVIEWED BELOW IMP: low plt count could be due to chronic ITP doubt heme malignancy REC: no specific testing or intervention for low plt count OK for "full dose" eliquis if plt>50, from heme perspective Active Medications Laboratory Last Values WBC 19.4 K/mm3 (4.5-11.0) H 10/17/20 05:42 Hgb 15.3 gm/dl (11.8-15.2) H 10/17/20 05:42 Hct 45.2 % (35.5-45.6) 10/17/20 05:42 Plt Count 93 K/mm3 (140-440) L 10/17/20 05:42 PT 14.2 Sec. (12.2-14.9) 10/15/20 12:23 INR 1.05 (0.87-1.13) 10/15/20 12:23 APTT 29.4 Sec. (24.2-36.6) 10/15/20 12:23 Coronavirus (PCR) Negative (Negative) 10/15/20 Unknown ) Ceftriaxone Sodium (Rocephin/Ns 2 Gm/100 Ml) 2 gm in 100 mls @ 200 mls/hr IV Q24H [facility]; Protocol Stop: 10/19/20 18:29 Last Admin: 10/17/20 21:35 Dose: 200 mls/hr Documented by: Azithromycin (Zithromax/Ns) 500 mg in 250 mls @ 250 mls/hr IV Q24H [facility]; Protocol Stop: 10/19/20 06:59 Last Admin: 10/18/20 05:23 Dose: 250 mls/hr Documented by: Methylprednisolone Sodium Succinate (Methylprednisolone Sod Succinate 125 Mg/2 Ml Inj) 40 mg IV Q8H [facility] Last Admin: 10/18/20 05:23 Dose: 40 mg Documented by: \\ Past History Past Medical History: hypertension, other (Tobacco abuse) Past Surgical History: No surgical history, Other (Reviewed) Social history: smoking Family history: hypertension Medications and Allergies Allergies Allergy/AdvReac Type Severity Reaction Status Date / Time No Known Allergies Allergy Verified 10/15/20 04:30 Home Medications Medication Instructions Recorded Confirmed Last Taken Type No Known Home Medications [No 10/17/20 10/17/20 Unknown History Reported Home Medications] Active Meds: Active Medications Acetaminophen (Acetaminophen 325 Mg Tab) 650 mg PO Q4H PRN PRN Reason: Pain MILD(1-3)/Fever >100.5/MAY Albuterol (Albuterol 2.5 Mg/3 Ml Nebu) 2.5 mg IH Q4HRT PRN PRN Reason: Shortness Of Breath Amiodarone HCl (Amiodarone 200 Mg Tab) 200 mg PO BID [facility] Last Admin: 10/17/20 21:36 Dose: 200 mg Documented by: Apixaban (Apixaban 5 Mg Tab) 5 mg PO Q12HR [facility]; Protocol Last Admin: 10/17/20 21:36 Dose: 5 mg Documented by: Ascorbic Acid (Ascorbic Acid 500 Mg Tab) 500 mg PO BID [facility] Last Admin: 10/17/20 21:36 Dose: 500 mg Documented by: Aspirin (Aspirin Ec 81 Mg Tab) 81 mg PO QDAY [facility] Last Admin: 10/17/20 10:53 Dose: 81 mg Documented by: Cholecalciferol (Cholecalciferol (Vit D3) 1000 Unit (25 Mcg) Tab) 1,000 unit PO QDAY [facility] Last Admin: 10/17/20 10:53 Dose: 1,000 unit Documented by: Furosemide (Furosemide 40 Mg/4 Ml Inj) 40 mg IV QDAY [facility] Last Admin: 10/17/20 10:53 Dose: 40 mg Documented by: Hydromorphone HCl (Hydromorphone 1 Mg/1 Ml Inj) 0.5 mg IV Q12H PRN PRN Reason: Pain , Severe (7-10) Ceftriaxone Sodium (Rocephin/Ns 2 Gm/100 Ml) 2 gm in 100 mls @ 200 mls/hr IV Q24H [facility]; Protocol Stop: 10/19/20 18:29 Last Admin: 10/17/20 21:35 Dose: 200 mls/hr Documented by: Azithromycin (Zithromax/Ns) 500 mg in 250 mls @ 250 mls/hr IV Q24H [facility]; Protocol Stop: 10/19/20 06:59 Last Admin: 10/18/20 05:23 Dose: 250 mls/hr Documented by: Methylprednisolone Sodium Succinate (Methylprednisolone Sod Succinate 125 Mg/2 Ml Inj) 40 mg IV Q8H [facility] Last Admin: 10/18/20 05:23 Dose: 40 mg Documented by: Metoprolol Tartrate (Metoprolol Tartrate 50 Mg Tab) 50 mg PO BID [facility] Last Admin: 10/17/20 21:36 Dose: 50 mg Documented by: Ondansetron HCl (Ondansetron 4 Mg/2 Ml Inj) 4 mg IV Q8H PRN PRN Reason: Nausea And Vomiting Oxycodone/Acetaminophen (Oxycodone /Acetaminophen 5-325mg Tab) 1 tab PO Q12H PRN PRN Reason: Pain, Moderate (4-6) Sodium Chloride (Sodium Chloride 0.9% 10 Ml Flush Syringe) 10 ml IV BID [facility] Last Admin: 10/17/20 21:37 Dose: 10 ml Documented by: Sodium Chloride (Sodium Chloride 0.9% 10 Ml Flush Syringe) 10 ml IV PRN PRN PRN Reason: LINE FLUSH Spironolactone (Spironolactone 25 Mg Tab) 25 mg PO QDAY [facility] Last Admin: 10/17/20 10:52 Dose: Not Given Documented by: Zinc Sulfate (Zinc Sulfate 220 Mg Cap) 220 mg PO BID [facility] Last Admin: 10/17/20 21:40 Dose: 220 mg Documented by: Exam - Constitutional Vitals: Last Vital Signs Temp 98.7 F 10/15/20 04:20 Pulse 96 H 10/17/20 21:35 Resp 20 10/17/20 16:30 BP 119/87 10/17/20 16:30 Pulse Ox 98 10/18/20 01:00 Results - Labs lab Results: Laboratory Results - last 24 hr 10/17/20 05:42 WBC 19.4 H RBC 4.76 Hgb 15.3 H Hct 45.2 MCV 95 H MCH 32 MCHC 34 RDW 13.6 Plt Count 93 L
[2020-10-18] MEDS: CHOLECALCIFEROL (VIT D3) 1000 UNIT (25 mcg) TAB PO SCH (10:46)
[2020-10-18] MEDS: ASCORBIC ACID 500 MG TAB PO SCH ×2 (10:46→22:25)
[2020-10-18] MEDS: SPIRONOLACTONE 25 MG TAB PO SCH (10:46)
[2020-10-18] MEDS: AMIODARONE 200 MG TAB PO SCH ×2 (10:46→22:25)
[2020-10-18] MEDS: METOPROLOL TARTRATE 50 MG TAB PO SCH ×2 (10:46→22:25)
[2020-10-18] MEDS: ASPIRIN EC 81 MG TAB PO SCH (10:47)
[2020-10-18] MEDS: FUROSEMIDE 40 MG/4 ML INJ IV SCH (10:47)
[2020-10-18] MEDS: ZINC SULFATE 220 MG CAP PO SCH ×2 (10:47→22:25)
--- NOTE | 2020-10-18 10:54 | Progress Note ---
Assessment and Plan New finding of Atrial fibrillation rate controlled with Diltiazem and Amiodarone TSH is at 3.2 Dilated cardiomyopathy, uncertain duration LVEF 20-25% Thrombocytopenia Tobacco abuse Recommendations: Advised low sodium diet and fluid restriction. Continue medical therapy for dilated cardiomyopathy and atrial fibrillation that persists. Okay for anticoagulation as per the recommendation of hematology. Will order low dose Eliquis due to thrombocytopenia. Lexiscan thallium stress test will be done tomorrow for dilated cardiomyopathy. Subjective Date of service: 10/18/20 Interval history: Patient is resting in bed comfortably. No cardiac complaints. Atrial fibrillation with a well controlled ventricular rate on telemetry. Objective Vital Signs Temp Pulse Resp BP Pulse Ox 10/18/20 08:42 97.3 F L 95 H 18 122/79 97 10/18/20 04:38 97.4 F L 85 18 118/78 90 10/18/20 01:00 98 10/17/20 23:44 97.6 F 75 19 122/83 99 10/17/20 21:35 96 H 10/17/20 20:02 97.4 F L 45 L 18 131/95 97 10/17/20 17:16 98.3 F 97 H 20 136/91 94 10/17/20 16:30 84 20 119/87 95 10/17/20 16:00 91 H 14 104/60 95 10/17/20 15:30 84 18 101/66 95 10/17/20 15:00 72 14 123/68 94 10/17/20 14:30 70 15 109/78 92 10/17/20 14:00 88 18 115/70 97 10/17/20 13:53 98 10/17/20 13:30 72 15 117/77 96 10/17/20 13:00 77 17 98/64 91 10/17/20 12:30 80 17 98/64 95 10/17/20 12:00 86 25 H 99/69 93 10/17/20 11:30 80 24 118/81 96 10/17/20 11:00 95 H 25 H 131/83 96 - Physical Examination General: No Apparent Distress HEENT: Positive: PERRL Neck: Positive: neck supple Cardiac: Positive: irregularly irregular Lungs: Positive: Decreased Breath Sounds Neuro: Positive: Grossly Intact Abdomen: Positive: Soft Extremities: Absent: edema - Labs and Meds Comprehensive Metabolic Panel 10/18/20 Range/Units 06:02 Creatinine 1.0 (0.8-1.3) mg/dL
[2020-10-18 11:14] LABS: BUN/Creatinine Ratio 51; Blood Urea Nitrogen 41 mg/dL (9-20); Calcium 9.4 mg/dL (8.4-10.2); Hemolysis Index 42
[2020-10-18 11:44] LABS: Hematocrit 46.5 % (35.5-45.6); Hemoglobin 15.6 gm/dl (11.8-15.2); Mean Corpuscular HGB Conc 34 % (32-34); Mean Corpuscular Volume 96 fl (84-94); Red Blood Count 4.86 M/mm3 (3.65-5.03); Red Cell Distribution Width 13.4 % (13.2-15.2)
[2020-10-18 11:46] LABS: Platelet Count 80 K/mm3 (140-440)
--- NOTE | 2020-10-18 15:07 | Progress Note ---
Assessment and Plan -- Acute hypoxemic respiratory failure Supplemental O2, nebulizer therapy as needed Likely due to underlying pneumonia and CHF, Continue antibiotics and diuretics as needed -- Atrial fibrillation with rapid ventricular response s/p Medical cardioversion with Cardizem with rate responding and below 100 bpm. Started on amiodarone Therapeutic anticoagulation as recommended, continue medical management. Cardiology following --Acute systolic CHF, EF 20 to 25% Diuresis as recommended per cardiology, antifailure medications -- Pneumonia, CAP Pneumonia protocol: IV antibiotic therapy, supplemental oxygen, pulse oximetry, blood culture. -- Suspected COVID-19 virus infection, ruled out with a negative test --Obesity, diet and exercise recommendation as outpatient when clinically more stable --Thrombocytopenia: Consulted hematology for anticoagulation recommendation -- DVT prophylaxis SCD to bilateral lower extremities while in bed, therapeutic anticoagulation as recommended by cardiology. --Full CODE STATUS Daily clinical course: 10/16/20: Covid test is negative, continue empiric antibiotic for pneumonia. Initiated on IV amiodarone for atrial fibrillation. Anticoagulation per cardiology recommendation. 2D echo showed EF 20 to 25%, cardiology following 10/17/20: Started on Eliquis for anticoagulation, continue rate control with Cardizem and amiodarone. Transition from IV to p.o. amiodarone today. Plan for stress test tomorrow. Continue to follow clinically 10/18/20: cont low dose AC with eliquis. Stress test postponed it for tomorrow. Continue to follow clinically. Possible discharge tomorrow if stress test is normal. Subjective Date of service: 10/18/20 Interval history: Patient seen and examined. Medical records and medication list reviewed. No acute event overnight noted by the RN. Patient complains of chest tightness and difficulty breathing on exertion. Patient is tolerating diet. Discussed plan of care at bedside with patient. Objective - Exam Narrative Exam: GENERAL: well-developed and well-nourished white male lying on bed appeared to be in no discomfort. HEENT: Normocephalic. Atraumatic. No conjunctival congestion or icterus. Patient has moist mucous membranes. NECK: Supple. Trachea midline. CHEST/LUNGS: Few crackles auscultated bilaterally, breathing nonlabored. No wheezes or rhonchi. HEART/CARDIOVASCULAR: Regular in rate and rhythm. S1 and S2 positive. ABDOMEN: Abdomen is soft, nontender. Patient has normal bowel sounds. SKIN: There is no rash. Warm and dry. NEURO: No focal motor deficit. Follows command. MUSCULOSKELETAL: No joint effusion or tenderness. EXTRIMITY: No edema, no cyanosis or clubbing. PSYCH: Cooperative. - Constitutional Vitals: Vital Signs - 12hr 10/18/20 10/18/20 10/18/20 04:38 08:42 10:00 Temperature 97.4 F L 97.3 F L Pulse Rate 85 95 H Respiratory 18 18 Rate Blood Pressure 118/78 122/79 O2 Sat by Pulse 90 97 95 Oximetry 10/18/20 10/18/20 12:01 12:12 Temperature 98.8 F Pulse Rate 73 Respiratory 18 Rate Blood Pressure 114/86 O2 Sat by Pulse 93 97 Oximetry - Labs CBC & Chem 7: 10/19/20 04:57 10/18/20 10:21 Labs: Abnormal lab results 10/18/20 10/18/20 Range/Units 10:21 10:21 WBC 15.0 H (4.5-11.0) K/mm3 Hgb 15.6 H (11.8-15.2) gm/dl Hct 46.5 H (35.5-45.6) % MCV 96 H (84-94) fl Plt Count 80 L (140-440) K/mm3 BUN 41 H (9-20) mg/dL Glucose 295 H (75-100) mg/dL HEART Score - HEART Score EKG: Non-specific Age: 45-65 Risk factors: 1-2 risk factors Troponin: Troponin T < 0.010 ng/mL (0.00-0.029) 10/15/20 04:40 Troponin: < normal limit
[2020-10-18] MEDS: cefTRIAXone/NS 2 GM/100 ML 2 GM/100 ML BAG IV SCH (17:11)
[2020-10-18] MEDS: APIXABAN 2.5 MG TAB PO SCH (22:25)
[2020-10-19 05:40] LABS: Hematocrit 47.4 % (35.5-45.6); Hemoglobin 15.8 gm/dl (11.8-15.2); Mean Corpuscular HGB Conc 33 % (32-34); Mean Corpuscular Volume 95 fl (84-94); Platelet Count 92 K/mm3 (140-440); Red Blood Count 4.97 M/mm3 (3.65-5.03); Red Cell Distribution Width 13.4 % (13.2-15.2)
[2020-10-19] MEDS: AZITHROMYCIN/NS 500 MG/250 ML 500 MG/250 ML BAG IV SCH (06:02)
[2020-10-19] MEDS: methylPREDNISolone Sod Succinate 125 MG/2 ML INJ IV SCH ×3 (06:02→21:15)
[2020-10-19] MEDS ORDERED: REGADENOSON 0.4 MG/5 ML INJ IV ONE (08:04)
[2020-10-19] MEDS: ASCORBIC ACID 500 MG TAB PO SCH ×2 (10:53→21:15)
[2020-10-19] MEDS: SPIRONOLACTONE 25 MG TAB PO SCH (10:53)
[2020-10-19] MEDS: ASPIRIN EC 81 MG TAB PO SCH (10:53)
[2020-10-19] MEDS: METOPROLOL TARTRATE 50 MG TAB PO SCH ×2 (10:53→21:16)
[2020-10-19] MEDS: AMIODARONE 200 MG TAB PO SCH ×2 (10:53→21:15)
[2020-10-19] MEDS: ZINC SULFATE 220 MG CAP PO SCH ×2 (10:53→21:15)
[2020-10-19] MEDS: APIXABAN 2.5 MG TAB PO SCH (10:53)
[2020-10-19] MEDS: CHOLECALCIFEROL (VIT D3) 1000 UNIT (25 mcg) TAB PO SCH (10:54)
[2020-10-19] MEDS: FUROSEMIDE 40 MG/4 ML INJ IV SCH (10:54)
--- NOTE | 2020-10-19 11:52 | Event Note ---
Date: 10/19/20 Patient underwent a Lexiscan thallium stress test, results are pending. We will continue guideline directed medical therapy for left ventricular systolic failure, and rate control strategy of atrial fibrillation. The investment accountant has permitted the use of Eliquis despite the patient's underlying thrombocytopenia. We will continue low-dose Eliquis and watch for any bleeding.
--- NOTE | 2020-10-19 12:08 | Nuclear Medicine Report ---
APPROVED REPORT Exam: Nuclear Stress Test Indication: Chest pain Ht: 6 ft 2 in Wt: 234 lbs BSA: 2.32 m2 BMI: 30.04 Stress Test Details Stress Test: Pharmacologic stress testing performed using 0.4 mg of regadenoson per 5 mL given IV over 10 seconds. HR Resting HR: 99 bpm Max HR Achieved: 112 bpm Max Heart Rate (APMHR): 161 bpm Target HR (85% APMHR): 136 bpm % of APMHR: 69 Recovery HR: 96 bpm HR response to stress: Normal HR response to stress BP Resting BP: 124/76 mmHg Max BP: 128/96 mmHg Recovery BP: 123/82 mmHg BP response to stress: Normal blood pressure response to stress. ECG Resting ECG: Atrial Fibrillation Stress ECG: Atrial Fibrillation, Tachycardia ST Change: None Arrhythmia: Atrial fibrillation, VPC's Recovery ECG: Atrial Fibrillation Recovery ST Change: None Recovery Arrhythmia: Atrial Fibrillation, VPC Clinical Reason for Termination: Completed protocol Stress Symptoms: None Stress ECG Conclusion No chest pain, no ST changes, MPI pending. NM EXAM: Myocardial Perfusion REST/STRESS Imaging Protocol: Rest Tc-99m/Stress Tc-99m 1 day Resting Data Rest SPECT myocardial perfusion imaging was performed in supine position 45 minutes following the intravenous injection of 10 mCi of Tc-99m Myoview. Time of rest injection: 0630 Pharmacologic Stress Pharmacologic stress test was performed by injecting Regadenoson 0.4 mg IV push followed by the intravenous injection of 28 mCi of Tc-99m Myoview. Time of stress injection: 0925 Stress only was performed in the Supine position. Study Quality Study: excellent Lung Uptake: Normal Study Data TID = 1.01. Perfusion Wall Motion Severe LV dilatation, no gatedn study due to AF. Nuclear Conclusion ECG Findings: negative for ischemia Clinical Findings: negative for ischemia Nuclear Findings: positive for ischemia Risk Study: moderate Abnormal study, dilated cardiomyopathy, large inferior defect with mild reversibility. Conclusion No chest pain, no ST changes, MPI pending.
--- NOTE | 2020-10-19 12:30 | Progress Note ---
Assessment and Plan Assessment and plan: -- Acute hypoxemic respiratory failure Supplemental O2, nebulizer therapy as needed Likely due to underlying pneumonia and CHF, Continue antibiotics and diuretics as needed -- Atrial fibrillation with rapid ventricular response s/p Medical cardioversion with Cardizem with rate responding and below 100 bpm. Started on amiodarone Therapeutic anticoagulation as recommended, continue medical management. Cardiology following --Acute systolic CHF, EF 20 to 25% Diuresis as recommended per cardiology, antifailure medications -- Pneumonia, CAP Pneumonia protocol: IV antibiotic therapy, supplemental oxygen, pulse oximetry, blood culture. -- Suspected COVID-19 virus infection, ruled out with a negative test --Obesity, diet and exercise recommendation as outpatient when clinically more stable --Thrombocytopenia: Consulted hematology for anticoagulation recommendation -- DVT prophylaxis SCD to bilateral lower extremities while in bed, therapeutic anticoagulation as recommended by cardiology. --Full CODE STATUS Daily clinical course: 10/16/20: Covid test is negative, continue empiric antibiotic for pneumonia. Initiated on IV amiodarone for atrial fibrillation. Anticoagulation per cardiology recommendation. 2D echo showed EF 20 to 25%, cardiology following 10/17/20: Started on Eliquis for anticoagulation, continue rate control with Cardizem and amiodarone. Transition from IV to p.o. amiodarone today. Plan for stress test tomorrow. Continue to follow clinically 10/18/20: cont low dose AC with eliquis. Stress test postponed it for tomorrow. Continue to follow clinically. Possible discharge tomorrow if stress test is normal. 10/19/20 Patient with CHF, afib. Stress test today. History Interval history: no chest pain stress test today Hospitalist Physical - Physical exam Narrative exam: Gen:Not in acute distress, lying in bed, obese HEENT:Normocephalic, atraumatic Neck:supple, no JVD Lungs: Clear, no wheeze Heart:S1 and S2 iireg, no murmurs, rubs or gallop Abd:Soft, non tender, non distended, normal bowel sounds Ext:No edema. no clubbing, no cyanosis Neuro:Awake, alert, oriented X 3, moves all ext, No focal neurological signs - Constitutional Vitals: Temp Pulse Resp BP Pulse Ox 97.8 F 63 18 123/79 99 10/19/20 04:51 10/19/20 04:51 10/19/20 04:51 10/19/20 09:32 10/19/20 04:51 General appearance: Present: no acute distress HEART Score - HEART Score EKG: Non-specific Age: 45-65 Risk factors: 1-2 risk factors Troponin: Troponin T < 0.010 ng/mL (0.00-0.029) 10/15/20 04:40 Troponin: < normal limit Results - Labs CBC & Chem 7: 10/19/20 04:57 10/18/20 10:21 Labs: Laboratory Last Values WBC 14.1 K/mm3 (4.5-11.0) H 10/19/20 04:57 RBC 4.97 M/mm3 (3.65-5.03) 10/19/20 04:57 Hgb 15.8 gm/dl (11.8-15.2) H 10/19/20 04:57 Hct 47.4 % (35.5-45.6) H 10/19/20 04:57 MCV 95 fl (84-94) H 10/19/20 04:57 MCH 32 pg (28-32) 10/19/20 04:57 MCHC 33 % (32-34) 10/19/20 04:57 RDW 13.4 % (13.2-15.2) 10/19/20 04:57 Plt Count 92 K/mm3 (140-440) L 10/19/20 04:57 Lymph % (Auto) 11.2 % (13.4-35.0) L 10/16/20 05:44 Gordon % (Auto) 3.4 % (0.0-7.3) 10/16/20 05:44 Eos % (Auto) 0.0 % (0.0-4.3) 10/16/20 05:44 Baso % (Auto) 0.2 % (0.0-1.8) 10/16/20 05:44 Lymph # (Auto) 1.3 K/mm3 (1.2-5.4) 10/16/20 05:44 Gordon # (Auto) 0.4 K/mm3 (0.0-0.8) 10/16/20 05:44 Eos # (Auto) 0.0 K/mm3 (0.0-0.4) 10/16/20 05:44 Baso # (Auto) 0.0 K/mm3 (0.0-0.1) 10/16/20 05:44 Seg Neutrophils % 85.2 % (40.0-70.0) H 10/16/20 05:44 Seg Neutrophils # 10.3 K/mm3 (1.8-7.7) H 10/16/20 05:44 PT 14.2 Sec. (12.2-14.9) 10/15/20 12:23 INR 1.05 (0.87-1.13) 10/15/20 12:23 APTT 29.4 Sec. (24.2-36.6) 10/15/20 12:23 Sodium 139 mmol/L (137-145) 10/18/20 10:21 Potassium 4.6 mmol/L (3.6-5.0) 10/18/20 10:21 Chloride 101.6 mmol/L (98-107) 10/18/20 10:21 Carbon Dioxide 27 mmol/L (22-30) 10/18/20 10:21 Anion Gap 15 mmol/L 10/18/20 10:21 BUN 41 mg/dL (9-20) H 10/18/20 10:21 Creatinine 0.8 mg/dL (0.8-1.3) 10/18/20 10:21 Estimated GFR > 60 ml/min 10/18/20 10:21 BUN/Creatinine Ratio 51 % 10/18/20 10:21 Glucose 295 mg/dL (75-100) H 10/18/20 10:21 Lactic Acid 1.90 mmol/L (0.7-2.0) 10/15/20 04:40 Calcium 9.4 mg/dL (8.4-10.2) 10/18/20 10:21 Magnesium 1.80 mg/dL (1.7-2.3) 10/15/20 12:23 Total Bilirubin 1.70 mg/dL (0.1-1.2) H 10/15/20 04:40 AST 44 units/L (5-40) H 10/15/20 04:40 ALT 31 units/L (7-56) 10/15/20 04:40 Alkaline Phosphatase 117 units/L (35-129) 10/15/20 04:40 Total Creatine Kinase 86 units/L (55-170) 10/15/20 04:40 CK-MB (CK-2) 3.9 ng/mL (0.0-4.0) 10/15/20 04:40 CK-MB (CK-2) Rel Index 4.5 (0-4) H 10/15/20 04:40 Troponin T < 0.010 ng/mL (0.00-0.029) 10/15/20 04:40 NT-Pro-B Natriuret Pep 2259 pg/mL (0-900) H 10/15/20 04:40 Total Protein 6.7 g/dL (6.3-8.2) 10/15/20 04:40 Albumin 4.4 g/dL (3.9-5) 10/15/20 04:40 Albumin/Globulin Ratio 1.9 % 10/15/20 04:40 TSH 0.692 mlU/mL (0.270-4.200) 10/15/20 12:23 Free T4 1.18 ng/dL (0.76-1.46) 10/15/20 12:23 Urine Opiates Screen Negative 10/15/20 07:03 Urine Methadone Screen Negative 10/15/20 07:03 Ur Barbiturates Screen Negative 10/15/20 07:03 Ur Phencyclidine Scrn Negative 10/15/20 07:03 Ur Amphetamines Screen Negative 10/15/20 07:03 U Benzodiazepines Scrn Negative 10/15/20 07:03 Urine Cocaine Screen Negative 10/15/20 07:03 U Marijuana (THC) Screen Negative 10/15/20 07:03 Drugs of Abuse Note Disclamer 10/15/20 07:03 Coronavirus (PCR) Negative (Negative) 10/15/20 Unknown Microbiology: Microbiology 10/15/20 04:40 Peripheral/Venous Blood Culture - Preliminary NO GROWTH AFTER 4 DAYS 10/15/20 04:34 Peripheral/Venous Blood Culture - Preliminary NO GROWTH AFTER 4 DAYS Trujillo/IV: Voiding Method Toilet Active Medications - Current Medications Current Medications: Generic Name Dose Route Start Last Admin Trade Name Freq PRN Reason Stop Dose Admin Acetaminophen 650 mg 10/15/20 11:53 Acetaminophen 325 Mg Tab PO Q4H PRN Pain MILD(1-3)/Fever >100.5/MAY Albuterol 2.5 mg 10/15/20 11:53 Albuterol 2.5 Mg/3 Ml Nebu IH Q4HRT PRN Shortness Of Breath Amiodarone HCl 200 mg 10/17/20 12:00 10/19/20 10:53 Amiodarone 200 Mg Tab PO 200 mg BID ANGEL Administration Apixaban 2.5 mg 10/18/20 22:00 10/19/20 10:53 Apixaban 2.5 Mg Tab PO 2.5 mg Q12HR ANGEL Administration Protocol Ascorbic Acid 500 mg 10/15/20 22:00 10/19/20 10:53 Ascorbic Acid 500 Mg Tab PO 500 mg BID ANGEL Administration Aspirin 81 mg 10/16/20 10:00 10/19/20 10:53 Aspirin Ec 81 Mg Tab PO 81 mg QDAY ANGEL Administration Cholecalciferol 1,000 unit 10/16/20 10:00 10/19/20 10:54 Cholecalciferol (Vit D3) 1000 Unit (25 Mcg) Tab PO 1,000 unit QDAY ANGEL Administration Furosemide 40 mg 10/16/20 11:00 10/19/20 10:54 Furosemide 40 Mg/4 Ml Inj IV 40 mg QDAY ANGEL Administration Hydromorphone HCl 0.5 mg 10/15/20 11:53 Hydromorphone 1 Mg/1 Ml Inj IV Q12H PRN Pain , Severe (7-10) Ceftriaxone Sodium 2 gm in 100 mls @ 200 mls/hr 10/15/20 18:00 10/18/20 17:11 Rocephin/Ns 2 Gm/100 Ml IV 10/19/20 18:29 200 mls/hr Q24H ANGEL Administration Protocol Methylprednisolone Sodium Succinate 40 mg 10/17/20 06:00 10/19/20 06:02 Methylprednisolone Sod Succinate 125 Mg/2 Ml Inj IV 40 mg Q8H ANGEL Administration Metoprolol Tartrate 50 mg 10/16/20 11:00 10/19/20 10:53 Metoprolol Tartrate 50 Mg Tab PO 50 mg BID ANGEL Administration Ondansetron HCl 4 mg 10/15/20 11:53 Ondansetron 4 Mg/2 Ml Inj IV Q8H PRN Nausea And Vomiting Oxycodone/Acetaminophen 1 tab 10/15/20 11:53 Oxycodone /Acetaminophen 5-325mg Tab PO Q12H PRN Pain, Moderate (4-6) Sodium Chloride 10 ml 10/15/20 22:00 10/18/20 22:26 Sodium Chloride 0.9% 10 Ml Flush Syringe IV 10 ml BID ANGEL Administration Sodium Chloride 10 ml 10/15/20 11:53 10/19/20 06:03 Sodium Chloride 0.9% 10 Ml Flush Syringe IV 10 ml PRN PRN Administration LINE FLUSH Spironolactone 25 mg 10/16/20 11:00 10/19/20 10:53 Spironolactone 25 Mg Tab PO 25 mg QDAY ANGEL Administration Zinc Sulfate 220 mg 10/15/20 22:00 10/19/20 10:53 Zinc Sulfate 220 Mg Cap PO 220 mg BID ANGEL Administration
[2020-10-19] MEDS: cefTRIAXone/NS 2 GM/100 ML 2 GM/100 ML BAG IV SCH (20:14)
[2020-10-20] MEDS ORDERED: INSULIN LISPRO 100 UNIT/ML SUB-Q ONE (05:38)
[2020-10-20 05:47] LABS: Hematocrit 50.5 % (35.5-45.6); Hemoglobin 17.2 gm/dl (11.8-15.2); Lymphocytes # (Auto) 1.6 K/mm3 (1.2-5.4); Lymphocytes % (Auto) 12.8 % (13.4-35.0); Mean Corpuscular HGB Conc 34 % (32-34); Mean Corpuscular Volume 94 fl (84-94); Monocytes # (Auto) 0.6 K/mm3 (0.0-0.8); Monocytes % (Auto) 4.9 % (0.0-7.3); Red Blood Count 5.36 M/mm3 (3.65-5.03); Red Cell Distribution Width 13.4 % (13.2-15.2)
[2020-10-20 05:49] LABS: INR 1.19 (0.87-1.13)
[2020-10-20] MEDS: methylPREDNISolone Sod Succinate 125 MG/2 ML INJ IV SCH ×3 (05:50→22:08)
[2020-10-20 05:51] LABS: Platelet Count 89 K/mm3 (140-440)
[2020-10-20 06:19] LABS: BUN/Creatinine Ratio 48; Blood Urea Nitrogen 38 mg/dL (9-20); Calcium 9.1 mg/dL (8.4-10.2); Hemolysis Index 29
[2020-10-20] MEDS ORDERED: SODIUM CHLORIDE 0.9% 500 ML 500 ML ONE (10:34)
[2020-10-20] MEDS: ASPIRIN EC 81 MG TAB PO SCH (10:40)
[2020-10-20] MEDS ORDERED: HEPARIN/NS 5000 UNIT/500ML 1,000 ML IR ONE (10:48)
[2020-10-20] MEDS: LIDOCAINE (2%) 20 MG/1 ML VIAL 20 ML MDV INFILTRATI ONE ×2 (11:04→11:19)
[2020-10-20] MEDS: fentaNYL 100 MCG/2 ML INJ ONE ×2 (11:04→11:17)
[2020-10-20] MEDS: MIDAZOLAM 2 MG/2 ML INJ ONE ×2 (11:04→11:17)
--- NOTE | 2020-10-20 14:02 | Progress Note ---
Assessment and Plan Assessment and plan: -- Acute hypoxemic respiratory failure Supplemental O2, nebulizer therapy as needed Likely due to underlying pneumonia and CHF, Continue antibiotics and diuretics as needed -- Atrial fibrillation with rapid ventricular response s/p Medical cardioversion with Cardizem with rate responding and below 100 bpm. Started on amiodarone Therapeutic anticoagulation as recommended, continue medical management. Cardiology following --Acute systolic CHF, EF 20 to 25% Diuresis as recommended per cardiology, antifailure medications -- Pneumonia, CAP Pneumonia protocol: IV antibiotic therapy, supplemental oxygen, pulse oximetry, blood culture. -- Suspected COVID-19 virus infection, ruled out with a negative test --Obesity, diet and exercise recommendation as outpatient when clinically more stable --Thrombocytopenia: Consulted hematology for anticoagulation recommendation -- DVT prophylaxis SCD to bilateral lower extremities while in bed, therapeutic anticoagulation as recommended by cardiology. --Full CODE STATUS Daily clinical course: 10/16/20: Covid test is negative, continue empiric antibiotic for pneumonia. Initiated on IV amiodarone for atrial fibrillation. Anticoagulation per cardiology recommendation. 2D echo showed EF 20 to 25%, cardiology following 10/17/20: Started on Eliquis for anticoagulation, continue rate control with Cardizem and amiodarone. Transition from IV to p.o. amiodarone today. Plan for stress test tomorrow. Continue to follow clinically 10/18/20: cont low dose AC with eliquis. Stress test postponed it for tomorrow. Continue to follow clinically. Possible discharge tomorrow if stress test is normal. 10/19/20 Patient with CHF, afib. Stress test today. 10/20/20 Patient had abnormal stress test yesterday. Cardiac cath today. Called Dr. José Antonio Barry and discussed that Patient had lenora of 43 last night. He recommends decrease metoprolol to 25mg bid and decrease Amiodarone to 200mg once daily. Will keep overnight to stabilize HR. Small vessel CAD omn cardiac cath. For medical management as per cardiology. History Interval history: no chest pain Cardiac cath today Hospitalist Physical - Physical exam Narrative exam: Gen:Not in acute distress, lying in bed, obese HEENT:Normocephalic, atraumatic Neck:supple, no JVD Lungs: Clear, no wheeze Heart:S1 and S2 iireg, no murmurs, rubs or gallop Abd:Soft, non tender, non distended, normal bowel sounds Ext:No edema. no clubbing, no cyanosis Neuro:Awake, alert, oriented X 3, moves all ext, No focal neurological signs - Constitutional Vitals: Temp Pulse Resp BP Pulse Ox 97.9 F 49 L 18 157/96 92 10/20/20 07:36 10/20/20 07:36 10/20/20 07:36 10/20/20 07:36 10/20/20 07:36 General appearance: Present: no acute distress HEART Score - HEART Score EKG: Non-specific Age: 45-65 Risk factors: 1-2 risk factors Troponin: Troponin T < 0.010 ng/mL (0.00-0.029) 10/15/20 04:40 Troponin: < normal limit Results - Labs CBC & Chem 7: 10/20/20 04:58 10/20/20 04:58 Labs: Laboratory Last Values WBC 12.4 K/mm3 (4.5-11.0) H 10/20/20 04:58 RBC 5.36 M/mm3 (3.65-5.03) H 10/20/20 04:58 Hgb 17.2 gm/dl (11.8-15.2) H 10/20/20 04:58 Hct 50.5 % (35.5-45.6) H 10/20/20 04:58 MCV 94 fl (84-94) 10/20/20 04:58 MCH 32 pg (28-32) 10/20/20 04:58 MCHC 34 % (32-34) 10/20/20 04:58 RDW 13.4 % (13.2-15.2) 10/20/20 04:58 Plt Count 89 K/mm3 (140-440) L 10/20/20 04:58 Lymph % (Auto) 12.8 % (13.4-35.0) L 10/20/20 04:58 Harper % (Auto) 4.9 % (0.0-7.3) 10/20/20 04:58 Eos % (Auto) 0.0 % (0.0-4.3) 10/20/20 04:58 Baso % (Auto) 0.0 % (0.0-1.8) 10/20/20 04:58 Lymph # (Auto) 1.6 K/mm3 (1.2-5.4) 10/20/20 04:58 Harper # (Auto) 0.6 K/mm3 (0.0-0.8) 10/20/20 04:58 Eos # (Auto) 0.0 K/mm3 (0.0-0.4) 10/20/20 04:58 Baso # (Auto) 0.0 K/mm3 (0.0-0.1) 10/20/20 04:58 Seg Neutrophils % 82.3 % (40.0-70.0) H 10/20/20 04:58 Seg Neutrophils # 10.2 K/mm3 (1.8-7.7) H 10/20/20 04:58 PT 15.7 Sec. (12.2-14.9) H 10/20/20 04:58 INR 1.19 (0.87-1.13) H 10/20/20 04:58 APTT 29.4 Sec. (24.2-36.6) 10/15/20 12:23 Sodium 137 mmol/L (137-145) 10/20/20 04:58 Potassium 4.7 mmol/L (3.6-5.0) 10/20/20 04:58 Chloride 98.0 mmol/L (98-107) 10/20/20 04:58 Carbon Dioxide 29 mmol/L (22-30) 10/20/20 04:58 Anion Gap 15 mmol/L 10/20/20 04:58 BUN 38 mg/dL (9-20) H 10/20/20 04:58 Creatinine 0.8 mg/dL (0.8-1.3) 10/20/20 04:58 Estimated GFR > 60 ml/min 10/20/20 04:58 BUN/Creatinine Ratio 48 % 10/20/20 04:58 Glucose 306 mg/dL (75-100) H 10/20/20 04:58 POC Glucose 310 mg/dL (70-105) H 10/20/20 05:28 Lactic Acid 1.90 mmol/L (0.7-2.0) 10/15/20 04:40 Calcium 9.1 mg/dL (8.4-10.2) 10/20/20 04:58 Magnesium 1.80 mg/dL (1.7-2.3) 10/15/20 12:23 Total Bilirubin 1.70 mg/dL (0.1-1.2) H 10/15/20 04:40 AST 44 units/L (5-40) H 10/15/20 04:40 ALT 31 units/L (7-56) 10/15/20 04:40 Alkaline Phosphatase 117 units/L (35-129) 10/15/20 04:40 Total Creatine Kinase 86 units/L (55-170) 10/15/20 04:40 CK-MB (CK-2) 3.9 ng/mL (0.0-4.0) 10/15/20 04:40 CK-MB (CK-2) Rel Index 4.5 (0-4) H 10/15/20 04:40 Troponin T < 0.010 ng/mL (0.00-0.029) 10/15/20 04:40 NT-Pro-B Natriuret Pep 2259 pg/mL (0-900) H 10/15/20 04:40 Total Protein 6.7 g/dL (6.3-8.2) 10/15/20 04:40 Albumin 4.4 g/dL (3.9-5) 10/15/20 04:40 Albumin/Globulin Ratio 1.9 % 10/15/20 04:40 TSH 0.692 mlU/mL (0.270-4.200) 10/15/20 12:23 Free T4 1.18 ng/dL (0.76-1.46) 10/15/20 12:23 Urine Opiates Screen Negative 10/15/20 07:03 Urine Methadone Screen Negative 10/15/20 07:03 Ur Barbiturates Screen Negative 10/15/20 07:03 Ur Phencyclidine Scrn Negative 10/15/20 07:03 Ur Amphetamines Screen Negative 10/15/20 07:03 U Benzodiazepines Scrn Negative 10/15/20 07:03 Urine Cocaine Screen Negative 10/15/20 07:03 U Marijuana (THC) Screen Negative 10/15/20 07:03 Drugs of Abuse Note Disclamer 10/15/20 07:03 Coronavirus (PCR) Negative (Negative) 10/15/20 Unknown Microbiology: Microbiology 10/15/20 04:40 Peripheral/Venous Blood Culture - Final NO GROWTH AFTER 5 DAYS 10/15/20 04:34 Peripheral/Venous Blood Culture - Final NO GROWTH AFTER 5 DAYS Trujillo/IV: Voiding Method Toilet Active Medications - Current Medications Current Medications: Generic Name Dose Route Start Last Admin Trade Name Freq PRN Reason Stop Dose Admin Acetaminophen 650 mg 10/15/20 11:53 Acetaminophen 325 Mg Tab PO Q4H PRN Pain MILD(1-3)/Fever >100.5/MAY Albuterol 2.5 mg 10/15/20 11:53 Albuterol 2.5 Mg/3 Ml Nebu IH Q4HRT PRN Shortness Of Breath Amiodarone HCl 200 mg 10/17/20 12:00 10/19/20 21:15 Amiodarone 200 Mg Tab PO 200 mg BID ANGEL Administration Ascorbic Acid 500 mg 10/15/20 22:00 10/19/20 21:15 Ascorbic Acid 500 Mg Tab PO 500 mg BID ANGEL Administration Aspirin 81 mg 10/16/20 10:00 10/20/20 10:40 Aspirin Ec 81 Mg Tab PO 81 mg QDAY ANGEL Administration Cholecalciferol 1,000 unit 10/16/20 10:00 10/19/20 10:54 Cholecalciferol (Vit D3) 1000 Unit (25 Mcg) Tab PO 1,000 unit QDAY ANGEL Administration Furosemide 40 mg 10/16/20 11:00 10/19/20 10:54 Furosemide 40 Mg/4 Ml Inj IV 40 mg QDAY ANGEL Administration Hydromorphone HCl 0.5 mg 10/15/20 11:53 Hydromorphone 1 Mg/1 Ml Inj IV Q12H PRN Pain , Severe (7-10) Methylprednisolone Sodium Succinate 40 mg 10/17/20 06:00 10/20/20 05:50 Methylprednisolone Sod Succinate 125 Mg/2 Ml Inj IV 40 mg Q8H ANGEL Administration Metoprolol Tartrate 50 mg 10/16/20 11:00 10/19/20 21:16 Metoprolol Tartrate 50 Mg Tab PO Not Given BID [facility] Ondansetron HCl 4 mg 10/15/20 11:53 Ondansetron 4 Mg/2 Ml Inj IV Q8H PRN Nausea And Vomiting Oxycodone/Acetaminophen 1 tab 10/15/20 11:53 Oxycodone /Acetaminophen 5-325mg Tab PO Q12H PRN Pain, Moderate (4-6) Sodium Chloride 10 ml 10/15/20 22:00 10/19/20 21:16 Sodium Chloride 0.9% 10 Ml Flush Syringe IV 10 ml BID ANGEL Administration Sodium Chloride 10 ml 10/15/20 11:53 10/19/20 06:03 Sodium Chloride 0.9% 10 Ml Flush Syringe IV 10 ml PRN PRN Administration LINE FLUSH Spironolactone 25 mg 10/16/20 11:00 10/19/20 10:53 Spironolactone 25 Mg Tab PO 25 mg QDAY ANGEL Administration Zinc Sulfate 220 mg 10/15/20 22:00 10/19/20 21:15 Zinc Sulfate 220 Mg Cap PO 220 mg BID ANGEL Administration Nutrition/Malnutrition Assess - Dietary Evaluation Nutrition/Malnutrition Findings: Nutrition Notes Start: 10/19/20 13:00 Freq: Status: Active Protocol: Document 10/20/20 13:09 ANGELA (Rec: 10/20/20 13:13 ANGELA [id number]) Nutrition Notes Need for Assessment generated from: LOS Initial or Follow up Brief Note Subjective/Other Information Pt reports eating 25% of the meals, however, he states he has been eating peanut butter and jelly sandwiches, fruit and apple sauce when he doesn' t eat enough of his meals. He is mainly drinking sweet tea and water. Food prefrences noted. Nutrition Intervention Revisit per MD consult or patient Sign Off request:
--- NOTE | 2020-10-20 15:03 | Event Note ---
Date: 10/20/[address] José Antonio Barry and discussed that Patient had lenora of 43 last night. He recommends decrease metoprolol to 25mg bid and decrease Amiodarone to 200mg once daily. Will keep overnight to stabilize HR.
[2020-10-20] MEDS: CHOLECALCIFEROL (VIT D3) 1000 UNIT (25 mcg) TAB PO SCH (15:24)
[2020-10-20] MEDS: FUROSEMIDE 40 MG/4 ML INJ IV SCH (15:24)
[2020-10-20] MEDS: SPIRONOLACTONE 25 MG TAB PO SCH (15:24)
[2020-10-20] MEDS: ASCORBIC ACID 500 MG TAB PO SCH ×2 (15:24→22:08)
[2020-10-20] MEDS: METOPROLOL TARTRATE 25 MG TAB PO SCH ×2 (15:25→22:08)
[2020-10-20] MEDS: ZINC SULFATE 220 MG CAP PO SCH ×2 (15:25→22:08)
[2020-10-20] MEDS: AMIODARONE 200 MG TAB PO SCH (15:26)
--- NOTE | 2020-10-20 18:23 | Progress Note ---
Assessment and Plan - Patient Problems (1) Cardiomyopathy Current Visit: Yes Status: Acute (2) Atrial fibrillation with rapid ventricular response Current Visit: Yes Status: Acute Subjective Date of service: 10/20/20 Interval history: NO C/O Objective Vital Signs Temp Pulse Resp BP Pulse Ox 10/20/20 15:25 100 H 10/20/20 11:45 96 10/20/20 10:00 97 10/20/20 07:36 97.9 F 49 L 18 157/96 92 10/20/20 03:22 97.8 F 58 L 18 137/90 94 10/20/20 00:00 81 10/19/20 23:03 97.8 F 43 L 18 131/83 94 10/19/20 22:08 98 10/19/20 21:16 50 L 10/19/20 21:02 99 10/19/20 19:13 97.8 F 50 L 16 116/75 93 - Physical Examination General: No Apparent Distress HEENT: Positive: PERRL Neck: Positive: neck supple Cardiac: Positive: Reg Rate and Rhythm Lungs: Positive: clear to auscultation Neuro: Positive: Grossly Intact Abdomen: Positive: Soft Skin: Positive: Clear Extremities: Absent: edema - Labs and Meds Coagulation 10/20/20 Range/Units 04:58 PT 15.7 H (12.2-14.9) Sec. INR 1.19 H (0.87-1.13) CBC 10/20/20 Range/Units 04:58 WBC 12.4 H (4.5-11.0) K/mm3 RBC 5.36 H (3.65-5.03) M/mm3 Hgb 17.2 H (11.8-15.2) gm/dl Hct 50.5 H (35.5-45.6) % Plt Count 89 L (140-440) K/mm3 Lymph # (Auto) 1.6 (1.2-5.4) K/mm3 [place] # (Auto) 0.6 (0.0-0.8) K/mm3 Eos # (Auto) 0.0 (0.0-0.4) K/mm3 Baso # (Auto) 0.0 (0.0-0.1) K/mm3 Comprehensive Metabolic Panel 10/20/20 Range/Units 04:58 Sodium 137 (137-145) mmol/L Potassium 4.7 (3.6-5.0) mmol/L Chloride 98.0 (98-107) mmol/L Carbon Dioxide 29 (22-30) mmol/L BUN 38 H (9-20) mg/dL Creatinine 0.8 (0.8-1.3) mg/dL Glucose 306 H (75-100) mg/dL Calcium 9.1 (8.4-10.2) mg/dL
[2020-10-20] MEDS ORDERED: PRAVASTATIN 20 MG TAB PO SCH (22:00)
[2020-10-21] MEDS: METOPROLOL TARTRATE 50 MG TAB PO SCH (01:17)
[2020-10-21] MEDS: AMIODARONE 200 MG TAB PO SCH ×2 (01:17→10:10)
[2020-10-21] MEDS: methylPREDNISolone Sod Succinate 125 MG/2 ML INJ IV SCH ×2 (05:47→15:03)
[2020-10-21 06:30] LABS: Hemoglobin 18.3 gm/dl (11.8-15.2); Mean Corpuscular HGB Conc 34 % (32-34); Mean Corpuscular Volume 95 fl (84-94); Red Blood Count 5.72 M/mm3 (3.65-5.03); Red Cell Distribution Width 13.3 % (13.2-15.2)
[2020-10-21 06:44] LABS: Platelet Count 88 K/mm3 (140-440)
[2020-10-21] MEDS: SPIRONOLACTONE 25 MG TAB PO SCH (10:10)
[2020-10-21] MEDS: ASCORBIC ACID 500 MG TAB PO SCH (10:10)
[2020-10-21] MEDS: METOPROLOL TARTRATE 25 MG TAB PO SCH (10:10)
[2020-10-21] MEDS: ASPIRIN EC 81 MG TAB PO SCH (10:10)
[2020-10-21] MEDS: FUROSEMIDE 40 MG/4 ML INJ IV SCH (10:10)
[2020-10-21] MEDS: CHOLECALCIFEROL (VIT D3) 1000 UNIT (25 mcg) TAB PO SCH (10:10)
[2020-10-21] MEDS: ZINC SULFATE 220 MG CAP PO SCH (10:11)
[2020-10-21] MEDS ORDERED: APIXABAN 5 MG TAB PO SCH (11:00)
--- NOTE | 2020-10-21 11:41 | Discharge Summary ---
Providers - Providers Date of Admission: 10/15/20 11:53 Date of discharge: 10/21/20 Attending physician: BELA ELLIS 10/15/20 15:19 Consult to Physician [CONS] Routine Comment: Consulting Provider: SELVIN TRISTAN Physician Instructions: Reason For Exam: atrial fib 10/16/20 14:51 Consult to Physician [CONS] Routine Comment: Consulting Provider: AMALIA MARIE Physician Instructions: Reason For Exam: thrombocytopenia with afib Primary care physician: [employer] Hospitalization Condition: Fair Disposition: 01 HOME / SELF CARE / HOMELESS Final Discharge Diagnosis (Prints w/discharge instructions): 1.Acute systolic CHF. 2.Atrial Fibrillation. 3.Thrombocytopenia - Discharge Diagnoses (1) Diabetes mellitus Status: Acute (2) Atrial fibrillation with rapid ventricular response Status: Acute (3) Cardiomyopathy Status: Acute (4) Acute systolic (congestive) heart failure Status: Acute (5) Thrombocytopenia Status: Acute Core Measure Documentation - Palliative Care Palliative Care/ Comfort Measures: Not Applicable - Core Measures Any of the following diagnoses?: heart failure - Heart Failure Discharge Requirements SEGUNDO/ARB for LVSD if EF <40%: Yes Beta jaye at discharge: Yes Exam - Constitutional Vitals: Temp Pulse Resp BP Pulse Ox 98.1 F 62 20 126/74 92 10/21/20 07:54 10/21/20 07:54 10/21/20 07:54 10/21/20 07:54 10/21/20 07:54 Plan Activity: advance as tolerated Diet: low fat, low cholesterol, low salt, diabetic Plan of Treatment: 1.Follow up with PCP in 1 week 2.Follow up with Dr. Tristan, Cardiology in 1 week 3.Follow up with Dr. Salvador, [facility] [place] in 1 week. Follow up with: PRIMARY CARE, [Primary Care Provider] - 3-5 Days Prescriptions: Spironolactone [Aldactone] 25 mg PO QDAY #30 tablet Amiodarone [Cordarone 200 MG TAB] 200 mg PO DAILY #30 tablet Apixaban [Eliquis] 5 mg PO Q12HR #60 tablet glipiZIDE [Glucotrol] 5 mg PO BID #60 tablet Aspirin EC [Halfprin EC] 81 mg PO QDAY #30 tablet Furosemide [Lasix TAB] 40 mg PO QDAY #30 tablet AtorvaSTATin [Lipitor] 20 mg PO QHS #30 tab lisinopriL [Lisinopril] 20 mg PO DAILY #30 tablet Metoprolol [Lopressor TAB] 25 mg PO BID #60 tablet Famotidine [Pepcid] 20 mg PO BID #60 tablet
[2020-10-21 12:44] VITALS: BP 127/80
[2020-10-21 14:24] LABS: Chol/HDL Ratio 4.72 %
--- NOTE | 2020-10-21 16:13 | Cardiac Catherization Report ---
DATE OF SERVICE: 10/20/2020 HISTORY: The patient is a 60-year-old male who has been found to have a dilated cardiomyopathy and coronary angiography was recommended, risk factors for coronary artery disease. PROCEDURES: Left heart catheterization, ventriculography, and coronary angiography via the right femoral artery using 5-[place] catheters and a pigtail catheter. An ascending aortic root injection was also performed. COMPLICATIONS: None. ESTIMATED BLOOD LOSS: 10-20 mL TISSUE SAMPLES: None. SEDATION: Intravenous Versed and fentanyl. PREPROCEDURE DIAGNOSIS: Severe dilated cardiomyopathy. POSTPROCEDURE DIAGNOSIS: Nonischemic dilated cardiomyopathy with single vessel coronary artery disease. HEMODYNAMICS: Central aortic pressure 150/85. Left ventricular pressure 150/18. SEDATION AND PROCEDURE START TIME: 11:17 a.m. END TIME: 11:33 a.m. PROCEDURE TIME AND SEDATION TIME: 16 minutes. ANGIOGRAPHIC RESULTS: LEFT VENTRICLE: Left ventriculogram reveals a markedly dilated left ventricle with severe global hypokinesia. An estimation of the ejection fraction is 10-20%. There appears to be mitral regurgitation, which is hard to quantify on the study. RIGHT CORONARY ARTERY: This vessel was the dominant vessel and it is diffusely irregular with a mid 60% stenosis. LEFT CORONARY ARTERY: This vessel is diffusely irregular. The left main and circumflex are free of remarkable disease. The mid LAD is mildly irregular. It is stenosed by no more than 10%. The second diagonal branch is a fairly small caliber vessel with a fairly proximal discrete lesion of about 75-80%. FINAL IMPRESSION: 1. Severe dilated nonischemic cardiomyopathy. 2. Coronary artery disease with a 60% stenosis in the mid right coronary artery and a 75-80% stenosis in the second diagonal branch. The patient is free of angina and will be treated medically. PLAN: Aggressive medical therapy, CAD risk factor modification. Medications will include aspirin, beta blockers if tolerable, SEGUNDO inhibitors or ARB inhibitors if tolerated. Consider spironolactone. Recommend statin therapy. Note, the patient is also being treated for atrial fibrillation. Followup with Electrophysiology will be recommended. ICD therapy will need to be considered. TID: [id number] RECEIPT: [id number] JDS/NIT
[2020-10-22] MEDS ORDERED: APIXABAN 5 MG TAB PO SCH (22:00)
== END 2020-10-21 16:12 | disposition home or self-care (01) | DRG 286 ==
LOC: ED 04:11 → 3A 11:53 → 4A 10-17 15:34
PROVIDERS: ADMIT Internal Medicine; ATTEND Internal Medicine
PROC: 5A2204Z Restoration of Cardiac Rhythm, Single (ICD-10-PCS; 2020-10-15)
PROC: 4A023N7 Measurement of Cardiac Sampling and Pressure, Left Heart, Percutaneous Approach (ICD-10-PCS; principal; 2020-10-20)
PROC: B2111ZZ Fluoroscopy of Multiple Coronary Arteries using Low Osmolar Contrast (ICD-10-PCS; 2020-10-20)
PROC: B2151ZZ Fluoroscopy of Left Heart using Low Osmolar Contrast (ICD-10-PCS; 2020-10-20)
DX: I11.0 Hypertensive heart disease with heart failure (principal); J18.9 Pneumonia, unspecified organism; J96.01 Acute respiratory failure with hypoxia; E66.2 Morbid (severe) obesity with alveolar hypoventilation; I42.0 Dilated cardiomyopathy; Z20.822 Contact with and (suspected) exposure to COVID-19; I45.10 Unspecified right bundle-branch block; F17.200 Nicotine dependence, unspecified, uncomplicated; E11.9 Type 2 diabetes mellitus without complications; D69.6 Thrombocytopenia, unspecified; I25.10 Atherosclerotic heart disease of native coronary artery without angina pectoris; I50.41 Acute combined systolic (congestive) and diastolic (congestive) heart failure; I48.91 Unspecified atrial fibrillation; Z68.30 Body mass index [BMI] 30.0-30.9, adult; Z82.49 Family history of ischemic heart disease and other diseases of the circulatory system
CPT/HCPCS: 36415; 71045; 76705; 78452; 80048; 80053; 80061; 80307; 82140; 82550; 82553; 82565; 82962; 83036; 83735; 83880; 84439; 84443; 84484; 85025; 85027; 85610; 85730; 87040; 93005; 93017; 93306; 93458; 93567; G0378; A9270-GY; A9502; J0282; J0456; J0696; J1100; J1644; J1815; J1940; J2250; J2785; J2920; J2930; J3010; J7030; J7040; J7060; Q9967; U0003